=== PATIENT | female | born 1960 | race Caucasian/White ===

== ENCOUNTER 2018-05-13 00:14 | Outpatient (CLI) | payer BC, SELFPAY ==
--- NOTE | 2018-05-13 07:56 | DI.MAMMO_ITS ---
SYMPTOMS/DIAGNOSIS: SCREENING, Z12.31 MAMMOGRAM: Mammograms were interpreted according to the usual protocol including computer analysis with CAD system, tomosynthesis and C view imaging. Comparison is made with exams from 2012 through 2017. The breasts are composed of extremely dense fibroglandular tissue, breast density Category D. No suspicious masses or suspicious microcalcifications are seen. There has been no significant change. IMPRESSION: Category I D, negative mammogram. Yearly screening mammography is recommended. [facility] ASSESSMENT OF FINDINGS: Negative. Category 1. Patient will receive a letter notifying them of these results. BI-RADS category D. The breasts are extremely dense, which lowers the sensitivity of mammography.
== END 2018-05-13 00:34 ==
PROVIDERS: PCP Internal Medicine; Visit Provider Obstetrics & Gynecology Gynecology
DX: Z12.31 Encounter for screening mammogram for malignant neoplasm of breast (principal)
CPT/HCPCS: 77063; 77067

== ENCOUNTER 2018-12-11 01:49 | Outpatient (CLI) | payer BC, SELFPAY ==
--- NOTE | 2018-12-11 10:00 | DI.CT_ITS ---
SYMPTOM/DIAGNOSIS: ABDOMINAL MASS R1900, PAIN R10.[address]: 12/11 CT examination of the abdomen and pelvis was performed with a bolus infusion of 100 cc Omnipaque 350 and ingestion of dilute Barium. Images obtained through the lung bases are unremarkable. Liver, spleen and pancreas appear normal. Gallbladder and bile ducts are CT normal. Adrenals and kidneys appear normal. No urinary tract calcification or obstruction. Abdominal aorta is of normal diameter and no major vascular abnormalities seen. No abdominal wall hernia seen. No abdominal or pelvic adenopathy. Appendix is normal. No evidence of diverticulitis. Note is made of multiple loops of proximal to mid small bowel which have thick singh and disordered folds. No evidence of obstruction. Mild dilatation of multiple loops of small bowel noted. CONCLUSION: Suspected small bowel process with wall thickening and disordered folds and multiple loops of proximal to mid small bowel. Consider enteritis of uncertain etiology.
[2018-12-11] MEDS: Omnipaque 350 MG/ML 100 ML BTL IJ (10:02)
[2018-12-11] MEDS: Breeza Beverage 473 ML BTL PO ×2 (10:03→10:04)
[2018-12-11] MEDS: Omnipaque 350 MG/ML 50 ML BTL PO (10:03)
== END 2018-12-11 02:09 ==
PROVIDERS: PCP Internal Medicine; Visit Provider Nurse Practitioner Family
DX: R10.84 Generalized abdominal pain (principal); R19.00 Intra-abdominal and pelvic swelling, mass and lump, unspecified site; K63.89 Other specified diseases of intestine
CPT/HCPCS: 74177; J3490; Q9967

== ENCOUNTER 2019-06-14 01:57 | Outpatient (CLI) | payer BC, SELFPAY ==
--- NOTE | 2019-06-14 09:30 | DI.MAMMO_ITS ---
EXAM: MG MAMMO SCREENING CLINICAL HISTORY: screening. TECHNIQUE: Bilateral full field digital CC and MLO mammographic images were obtained with 3D tomosyn thesis and utilizing computer aided detection (CAD). COMPARISON: Available for comparison. FINDINGS: Masses/Architectural Distortion: None seen. Microcalcifications: No suspicious pleomorphic-type are seen. Skin Thickening/Nipple Retraction: None. IMPRESSION: 1. No significant interval change with no specific features of malignancy noted. 2. Unless there is more urgent need, screening mammography is recommended, as per [place] [employer] guidelines. ACR BI-RAD Category- 1 Negative Breast Density - Category C - Heterogeneously dense The mammogram demonstrates the patient's breast tissue is dense. Dense breast tissue is very common a nd is not abnormal but dense breast tissue can make it harder to find cancer on a mammogram. Also, de nse breast tissue may increase their breast cancer risk. This information about the result of the [facility] mogram report was provided to the patient to raise their awareness. Use this report when you speak wi th the patient about their risks for breast cancer, which includes their family history. At that time , you may recommend for more screening tests (Ultrasound or MRI) as they might be useful based on the ir risk. A negative radiographic report should not delay biopsy if a dominant or clinically suspicious mass is present. Up to ten percent of cancers are not identified on mammography. A negative report may reinforce clinical impression. Adenosis and dense breasts may obscure an underlying neoplasm. False positive reports average 6 to 10%. Patient will receive a letter notifying them of these results.
== END 2019-06-14 02:17 ==
PROVIDERS: PCP Internal Medicine; Visit Provider Obstetrics & Gynecology Gynecology
DX: Z12.31 Encounter for screening mammogram for malignant neoplasm of breast (principal)
CPT/HCPCS: 77063; 77067

== ENCOUNTER 2019-12-02 10:13 | Day surgery (SDC) | payer BC, SELFPAY ==
[2019-12-02 10:28] VITALS: BP 140/86; PULSE 57; RESP 16; TEMP 36.1; O2SAT 97
[2019-12-02] MEDS: Lactated Ringers 1,000 ML 80 ML IV (10:53)
--- NOTE | 2019-12-02 12:17 | W.PM.DSUDISC ---
Discharge Plan Disposition Patient Disposition: HOME Condition: Good Discharge Details Reason For Visit: colon scope Attending Provider: Nathaly Lucero Primary Care Provider: Isael Dinh Home Meds and New Rx's Prescriptions: Continued cholecalciferol (vitamin D3) 400 unit capsule 400 unit PO DAILY RF: 0 naproxen sodium [Aleve] 220 mg capsule 220 mg PO Q12H RF: 0 multivitamin [Multi-Day] 1 EACH tablet 1 ea PO DAILY RF: 0 Discharge Instructions Additional Instructions: Findings:normal today Follow up:repeat 5 yrs time Please call if you develop: fevers >101.5 Nausea or Vomiting Abdominal pain that is not transient DAY SURGERY UNIT POST COLONOSCOPY INSTRUCTIONS 1. Because there will be medication in your system for the next 24 hours, you may feel a little sleepy. Your coordination will be affected. Therefore: a. Do not drive or operate dangerous equipment for 24 hours. b. Do not drink alcohol beverages for 24 hours (not even beer). c. Plan to go home and rest for the day. 2. Generally there are no restrictions on your activity after a day or so has gone by, but you may feel a bit fatigued for a few days. 3 After you arrive home you may have a light meal and return to a normal diet as you can tolerate it without feeling sick to your stomach. 4. After surgery, you may feel pain or discomfort. This should be only transient, but if it persists please contact your doctor. 5. If there are any questions regarding the findings of your procedure, please feel free to contact your doctor. 6. If you are unable to contact your doctor with a problem, contact the hospital at [phone]. 7. Continue all your regular medications unless directed otherwise. I understand the above instructions and have no questions. Signature of Patient or Responsible Adult Escort Date/Time Name of Responsible Adult Escort Signature of Nurse Date/Time Activity:: No strenuous activity or lifting over 20 pounds x 24 hours. Diet:: Small light meals x24 hours Discharge Orders Discharge Orders: Discharge Order (Routine); Ordered 12/02/19 Ordered By: Nathaly Lucero DS: Diagnosis Discharge Diagnosis (1) Villous adenoma of rectum: Status: Acute
--- NOTE | 2019-12-02 12:20 | W.COLOREPORT ---
Date of service: 12/02/19 Time of Service: 12:20 Colonoscopy Report Date of procedure: 12/02/19 Pre-op diagnosis general: History of villous adenoma in the rectum Post-op diagnosis procedure note: same Procedure: Colonoscopy Anesthesia proc note operative: MAC Estimated blood loss (mL): 0 Pathology: none sent Complications: None Disposition: same day Prep: Miralax/Dulcolax Retraction Time: 10 mins Procedure Description: After informed consent was obtained the patient was taken to the procedure room and placed in a left decubitous position. Monitors were applied and a time out was done. The patients name, date of , procedure, allergies to medications and metal in their body was reviewed. The patient was then sedated. Once sedated and comfortable a rectal exam was done. External exam was normal. Internal exam revealed a normal sphincter tone and no palpable masses. The scope was then introduced and retrofelexed. no internal hemorrhoids were identified. The scope was then advanced to the cecum w/outdifficulty. The TI and appendiceal orifice were identified. The prep was good. The scope was then slowly retracted over 10 mins. Mnutes back into the rectum. No diverticula or AVMs identified. Is pink and healthy. There is no signs of polypoid disease.. The scope was removed and the patient was woken up and taken back to Same day surgery in stable condition. The patient tolerated the procedure well and there were no immediate complications. Follow up: The patient should follow up in 5 years (had a very lg villous in the rectum in 2009) unless they develop changes in bowel habits or other new gastrointestinal complaints.
[2019-12-02 12:45] VITALS: BP 114/70; PULSE 43; RESP 16; TEMP 36.2; O2SAT 100
== END 2019-12-02 13:34 | disposition home or self-care (01) ==
PROVIDERS: PCP Internal Medicine; Visit Provider Surgery
PROC: 0DJD8ZZ Inspection of Lower Intestinal Tract, Via Natural or Artificial Opening Endoscopic (ICD-10-PCS; CPT 45378; principal; 2019-12-02 11:00)
DX: Z12.11 Encounter for screening for malignant neoplasm of colon (principal); Z86.018 Personal history of other benign neoplasm; Z83.71 Family history of colonic polyps
CPT/HCPCS: 45378

== ENCOUNTER 2020-04-24 10:05 | Outpatient (REF) | payer BC, SELFPAY ==
--- NOTE | 2020-04-24 08:30 | PAPFT_PTH ---
PATIENT: Shahida Allen LOC: [facility] U#:[id number] AGE/SX: 59/F ROOM: RE04/24/[address]: Adela Rogers NP : 1960 BED: DIS: 04/24/2020 SPEC #: [id number] RECD: 04/24/20 12:47 STATUS: DEJAH REQ #: [id number] MARIS: 04/24/20 08:[address]: Ken MORALES,Adela DEPT: [facility] Cytology RECD BY: Thea Diggs ENTERED: 04/24/20 12:48 SP TYPE: PAPFT OTHR DR: Isael Dinh Tissues: 1 - CX/ENDOCX FOR PAP SMEARS Procedures: PAP THIN PREP/UVM Screening Comments: [id number] (UNSATISFACTORY FOR EVALUATION)
== END 2020-04-24 10:25 ==
LOC: LBN 10:05
PROVIDERS: PCP Internal Medicine; Visit Provider Nurse Practitioner Women's Health
DX: Z12.4 Encounter for screening for malignant neoplasm of cervix (principal); R87.615 Unsatisfactory cytologic smear of cervix
CPT/HCPCS: 88142

== ENCOUNTER 2020-06-19 09:41 | Outpatient (REF) | payer BC, SELFPAY ==
--- NOTE | 2020-06-19 09:10 | PAPFT_PTH ---
PATIENT: Shahida Allen LOC: [facility] U#:[id number] AGE/SX: 59/F ROOM: RE06/19/[address]: Adela Rogers NP : 1960 BED: DIS: 06/19/2020 SPEC #: [id number] RECD: 06/19/20 13:11 STATUS: DEJAH REHailee #: [id number] MARIS: 06/19/20 09:[address]: Adela Rogers NP DEPT: [facility] Cytology RECD BY: Thea Diggs ENTERED: 06/19/20 13:11 SP TYPE: PAPFT OTHR DR: Isael Dinh Tissues: 1 - CX/ENDOCX FOR PAP SMEARS Procedures: PAP THIN PREP/UVM Screening HPV DNA PROBE Comments: [id number]
== END 2020-06-19 09:42 | disposition home or self-care (01) ==
LOC: LBN 09:41
PROVIDERS: PCP Internal Medicine; Visit Provider Nurse Practitioner Women's Health
DX: Z12.4 Encounter for screening for malignant neoplasm of cervix (principal); Z11.51 Encounter for screening for human papillomavirus (HPV)
CPT/HCPCS: 88142; 87624

== ENCOUNTER 2020-06-26 02:12 | Outpatient (CLI) | payer BC, SELFPAY ==
--- NOTE | 2020-06-26 | DI.MAMMO_ITS ---
EXAM: MG MAMMO SCREENING CLINICAL HISTORY: SCREENING, Z12.39 TECHNIQUE: Bilateral full field digital CC and MLO mammographic images were obtained with 3D tomosyn thesis and utilizing computer aided detection (CAD). COMPARISON: Available for comparison. FINDINGS: Masses/Architectural Distortion: None seen. Microcalcifications: No suspicious pleomorphic-type are seen. Skin Thickening/Nipple Retraction: None. IMPRESSION: 1. No significant interval change with no specific features of malignancy noted. 2. Unless there is more urgent need, screening mammography is recommended, as per [place] [employer] guidelines. BI-RADS Category 1 - Negative Breast Density - Category C - Heterogeneously dense Breast density category C or D implies that the patient has dense breast tissue. Dense breast tissue is very common and is not abnormal but dense breast tissue can make it harder to find cancer on a ma mmogram. Also, dense breast tissue may increase their breast cancer risk. This information about the result of the mammogram report was provided to the patient to raise their awareness. Use this report when you speak with the patient about their risks for breast cancer, which includes their family hist ory. At that time, you may recommend for more screening tests (Ultrasound or MRI) as they might be us eful based on their risk. A negative radiographic report should not delay biopsy if a dominant or clinically suspicious mass is present. Up to ten percent of cancers are not identified on mammography. A negative report may reinforce clinical impression. Adenosis and dense breasts may obscure an underlying neoplasm. False positive reports average 6 to 10%. Patient will receive a letter notifying them of these results.
== END 2020-06-26 02:32 ==
PROVIDERS: PCP Internal Medicine; Visit Provider Nurse Practitioner Women's Health
DX: Z12.31 Encounter for screening mammogram for malignant neoplasm of breast (principal)
CPT/HCPCS: 77063; 77067

== ENCOUNTER 2021-03-27 10:55 | Outpatient (REF) | payer SELFPAY ==
[2021-03-27 15:17] LABS: Calculated LDL 148 mg/dL (<100); Cholesterol 275 mg/dL (<200); Glucose 92 mg/dL (74-106); HDL Cholesterol 117 mg/dL (40-60); Triglyceride 52 mg/dL (<150)
== END 2021-03-27 10:56 | disposition home or self-care (01) ==
LOC: NCHCN 10:55
PROVIDERS: PCP Internal Medicine; Visit Provider Family Medicine
DX: R42 Dizziness and giddiness (principal)
CPT/HCPCS: 80061; 82947

== ENCOUNTER 2021-04-11 11:40 | Outpatient (REF) | payer SELFPAY ==
--- NOTE | 2021-04-11 09:30 | SKI_PTH ---
PATIENT: Shahida Allen LOC: [facility]#:[id number] AGE/SX: 60/F ROOM: RE04/11/[address]: Wagner Rodriguez : 1960 BED: DIS: 04/11/2021 SPEC #: [id number] RECD: 04/11/21 17:43 STATUS: DEJAH REQ #: [id number] MARIS: 04/11/21 09:[address]: Wagner Rodriguez DEPT: Surgical Specimen RECD BY: Thea Diggs ENTERED: 04/11/21 17:43 SP TYPE: MICA ALFARO DR: Isael Dinh Tissues: 1 - SKIN BIOPSY(SHAVE/PUNCH) Procedures: SKIN LEVEL 4 Comments: [id number]
== END 2021-04-11 11:41 | disposition home or self-care (01) ==
LOC: LBN 11:40
PROVIDERS: PCP Internal Medicine; Visit Provider Family Medicine
DX: C44.612 Basal cell carcinoma of skin of right upper limb, including shoulder (principal)
CPT/HCPCS: 88305

== ENCOUNTER 2023-02-10 10:37 | Outpatient (REF) | payer BC, SELFPAY ==
--- NOTE | 2023-02-10 10:25 | PAPFT_PTH ---
PATIENT: Shahida Allen LOC: [facility]#:[id number] AGE/SX: 62/F ROOM: RE02/10/[address]: Adela Rogers NP : 1960 BED: DIS: 02/10/2023 SPEC #: [id number] RECD: 02/10/23 13:01 STATUS: DEJAH REQ #: [id number] MARIS: 02/10/23 10:[address]: Ken MORALES,Adela DEPT: [facility] Cytology RECD BY: Thea Diggs ENTERED: 02/10/23 13:01 SP TYPE: PAPFT OTHR DR: Isael Dinh Tissues: 1 - CX/ENDOCX FOR PAP SMEARS Procedures: PAP THIN PREP/UVM Screening HPV DNA PROBE Comments: [id number]
== END 2023-02-10 10:38 | disposition home or self-care (01) ==
LOC: LBN 10:37
PROVIDERS: PCP Internal Medicine; Visit Provider Nurse Practitioner Women's Health
DX: Z12.4 Encounter for screening for malignant neoplasm of cervix (principal); Z11.51 Encounter for screening for human papillomavirus (HPV)
CPT/HCPCS: 88142; 87624

== ENCOUNTER → 2023-02-27 01:13 | Outpatient (CLI) | payer BC, SELFPAY ==
--- NOTE | 2023-02-27 12:15 | DI.MAMMO_ITS ---
Exam(s) MAMMO SCREENING EXAM: MAMMO SCREENING Ronnie see CLINICAL HISTORY: screening TECHNIQUE: Bilateral full field digital CC and MLO mammographic images were obtained with 3D tomosyn thesis and utilizing computer aided detection (CAD). COMPARISON: Available for comparison. FINDINGS: Masses/Architectural Distortion: None seen. Microcalcifications: No suspicious pleomorphic-type are seen. Skin Thickening/Nipple Retraction: None. IMPRESSION: 1. No significant interval change with no specific features of malignancy noted. 2. Unless there is more urgent need, screening mammography is recommended, as per [place] [employer] guidelines. BI-RADS Category 1 - Negative Breast Density - Category C - Heterogeneously dense Breast density category C or D implies that the patient has dense breast tissue. Dense breast tissue is very common and is not abnormal but dense breast tissue can make it harder to find cancer on a ma mmogram. Also, dense breast tissue may increase their breast cancer risk. This information about the result of the mammogram report was provided to the patient to raise their awareness. Use this report when you speak with the patient about their risks for breast cancer, which includes their family hist ory. At that time, you may recommend for more screening tests (Ultrasound or MRI) as they might be us eful based on their risk. A negative radiographic report should not delay biopsy if a dominant or clinically suspicious mass is present. Up to ten percent of cancers are not identified on mammography. A negative report may reinforce clinical impression. Adenosis and dense breasts may obscure an underlying neoplasm. False positive reports average 6 to 10%. Patient will receive a letter notifying them of these results.
== END ==
PROVIDERS: PCP Internal Medicine; Visit Provider Nurse Practitioner Women's Health
DX: Z12.31 Encounter for screening mammogram for malignant neoplasm of breast (principal)
CPT/HCPCS: 77063; 77067

== ENCOUNTER 2023-08-25 14:36 | Outpatient (REF) | payer BC, SELFPAY ==
[2023-08-25 14:33] LABS: HCT 44.1 % (36.0-46.0); HGB 14.2 g/dL (11.2-15.7); MCH 30.5 pg (27.0-33.0); MCHC 32.2 % (32.0-36.0); MCV 95 fL (80-95); MPV 11.1 fL (8.0-11.0); Platelet Count 370 10^3/uL (130-400); RBC 4.65 10^6/uL (3.93-5.22); RDW-SD 45.1 fL; WBC 3.77 10^3/uL (4.4-10.8)
[2023-08-25 15:16] LABS: ALT 32 U/L (14-59); AST 21 U/L (15-37); Albumin 3.7 g/dL (3.4-5.0); Alkaline Phosphatase 48 U/L (46-116); BUN 18 mg/dL (7-18); CREATININE 0.6 mg/dL (0.55-1.02); Calcium 9.4 mg/dL (8.5-10.1); Calculated LDL 103 mg/dL (<100); Chloride 105 mmol/L (98-107); Cholesterol 230 mg/dL (<200); Estimated GFR 102.06 (mL/min/1.73m2); Glucose 93 mg/dL (74-106); HDL Cholesterol 117 mg/dL (40-60); Potassium 4.8 mmol/L (3.5-5.1); Sodium 142 mmol/L (136-145); Total Protein 6.4 g/dL (6.4-8.2); Triglyceride 52 mg/dL (<150)
== END 2023-08-25 14:37 | disposition home or self-care (01) ==
LOC: NCHCN 14:36
PROVIDERS: PCP Internal Medicine; Visit Provider Family Medicine
DX: Z00.00 Encounter for general adult medical examination without abnormal findings (principal); E78.5 Hyperlipidemia, unspecified
CPT/HCPCS: 80053; 80061; 85027

== ENCOUNTER 2023-11-25 13:15 | Outpatient (REF) | payer BC, SELFPAY ==
[2023-11-25 14:59] LABS: TSH (W/Ref FT4) 2.13 uIU/mL (0.36-3.74)
== END 2023-11-25 13:16 | disposition home or self-care (01) ==
LOC: NCHCN 13:15
PROVIDERS: PCP Internal Medicine; Visit Provider Family Medicine
DX: F32.89 Other specified depressive episodes (principal)
CPT/HCPCS: 84443

== ENCOUNTER 2024-03-26 00:29 | Outpatient (CLI) | payer BC, SELFPAY ==
--- OUTSIDE RECORDS SUMMARY | 2024-03-26 00:34 | XMS_ITS | Encounter Summary ---
[facility] [place] [address] Care Team Providers Care Instructor Robotics Name Role Phone Wagner Rodriguez MD Primary Care Provider [phone] Encounter Details Date Type Department Care Team (Latest Contact Info) Description 10/31/2022 9:45 AM EDT Clinical Support Dermatology at [facility] [address] [place] [address] Pacheco Awan MD [facility] DR [facility] [address] Basal cell carcinoma (BCC) of forehead Social History Tobacco Use Types Packs/Day Years Used Date Smoking Tobacco: Never Smokeless Tobacco: Never Sex and Gender Information Value Date Recorded Sex Assigned at Not on file Gender Identity Not on file Sexual Orientation Not on file documented as of this encounter Progress Notes * Ashley Lemus, JOSS - 10/31/2022 9:45 AM EDT Mohs consultation and preoperative note (H&P) Patient Name: Shahida Allen Age: 62 y.o. Date of : 1960 Today's Date: 10/31/2022 REFERRING PROVIDER: Sandra Cameron CC: Mohs micrographic surgery for treatment of a cutaneous tumor HPI: Shahida Allen is a 62 y.o. female presenting for biopsy-proven basal cell carcinoma, superficial and nodular, location on the left forehead. The dermatologic preoperative information sheet was reviewed with pertinent positive and negative as below. DERMATOLOGIC PRE-OPERATIVE EVALUATION AND REVIEW OF SYSTEMS History of Mohs surgery? no If yes, have you ever had Mohs surgery with Dr. Awan? no Pacemaker/Defibrillator? no Joint replacement or other implantable devices (e.g. Cochlear implant)? If yes then when? no Do you take a blood thinner? No History of organ transplant? no History of artificial valve or stroke? no History of liver disease or bleeding disorder? no Do you have any medical problems that may affect your upcoming surgery? no Do you have any concerns regarding your upcoming surgery? no We ask patients to discontinue Fish oil/Multivitamin/Vit E/?? supplements and natural medicines not prescribed by a physician 1 week prior to surgery. SOCIAL HISTORY: Makes Own Decisions Yes Hearing aid or other devices: No Relevant travel history or future plans: none Tobacco use (amount per day, type of tobacco): no Do you have any physical limitations that may affect your surgery?: no ALLERGIES: Allergies reviewed MEDICATIONS: Medications reviewed documented in this encounter Plan of Treatment Not on file documented as of this encounter Visit Diagnoses Diagnosis Basal cell carcinoma (BCC) of forehead documented in this encounter Care Teams Instructor Robotics Relationship Specialty Start Date End Date Wagner Rodriguez MD [address] [place] [address] PCP - General Family Medicine 02/18/22 documented as of this encounter
--- OUTSIDE RECORDS SUMMARY | 2024-03-26 00:34 | XMS_ITS | Encounter Summary ---
Author Organization [facility] Address 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 Sandra Cameron MD [facility] [place] [address] [facility] [address] [place] [address] Referral ID Status Reason Start Date Expiration Date V isits Requested Visits Authorized [id number] Closed Consult, Test & Treat 09/11/2022 09/11/2023 1 1 Encounter Details Date Type Department Care Team (Latest Contact Info) Description 10/31/2022 10:00 AM EDT Procedure visit Dermatology at [facility] [address] [place] [address] Pacheco Awan MD [facility] [address] [place] [address] Basal cell carcinoma (BCC), unspecified site; Basal cell carcinoma (BCC) of left forehead Social History Tobacco Use Types Packs/Day Years Used Date Smoking Tobacco: Never Smokeless Tobacco: Never Sex and Gender Information Value Date Recorded Sex Assigned at Not on file Gender Identity Not on file Sexual Orientation Not on file documented as of this encounter Last Filed Vital Signs Vital Sign Reading Time Taken Comments Blood Pressure 154/84 10/31/2022 9:57 AM EDT Pulse 58 10/31/2022 9:57 AM EDT Temperature - - Respiratory Rate - - Oxygen Saturation - - Inhaled Oxygen Concentration - - Weight - - Height - - Body Mass Index - - documented in this encounter Progress Notes * Pacheco Awan MD - 10/31/2022 10:00 AM EDT Images from the original note were not included. Summary of Procedure(s): Site: left forehead Tumor Type: Basal Cell Carcinoma, superficial and nodular Stages to clear tumor: 1 Repair: linear closure Images: The patient was asked to call with any issues and is aware that I am available 18/11 should questions arise. Pacheco Awan MD PhD Mohs Micrographic Surgery and Dermatologic Oncology Department of Dermatology Please note that I have reviewed the preoperative checklist from today's nursing visit including relevant social history and medications. I have reviewed the preoperative photos if available and the biopsy report. VITAL SIGNS: BP 154/84 (BP Location (NBP): Right arm, Patient Position: Sitting, BP Cuff Sizes: Adult (25-34 cm)) Pulse 58 PHYSICAL EXAMINATION: General: patient is awake, alert, oriented and in no acute distress. Skin: Focused examination of surgical site(s) performed which shows a well healed biopsy site with surrounding poorly defined pearly plaque. PHYSICIAN REVIEW OF REPORTS, RECORDS, IMAGES: 1) The accompanying pathology report(s) associated with aforementioned biopsy slide(s) were/was also reviewed. Assessment: Shahida Allen is a 62 y.o. female presenting for: 1. Biopsy-proven basal cell carcinoma located on the Left forehead . Plan: 1. Findings from the biopsy report, today's clinical exam, and other pertinent details were reviewed with patient today. All questions were answered. 2. Discussed treatment options based on the above findings. We recommended Mohs micrographic surgery for treatment of this tumor. Mohs micrographic surgery was indicated due to patient, site and/or tumor characteristics (see operative report for specific indication). 3. We discussed risks, benefits, and alternative treatment options to the Mohs micrographic surgeryprocedure and pertinent information including but not limited to the following: Risks include bleeding, infection, scar, recurrence, incomplete tumor removal or inability to cure with surgery alone if the tumor features are more aggressive than the initial pathology indicates. Occasionally, additional adjuvant treatments may be recommended. Additional risks include large wound, prolonged wound and healing, pain, swelling, bruising, increased appearance of vessels or worsening erythema of baseline skin; more rarely risks include damage to underlying structures such as nerves, cartilage, or muscle which could lead to temporary or permanent loss of sensation or motor function. Benefit is precise tumor removal If reconstruction is performed, it is specific to the patient and defect. Discussed that the shape, size, depth of the wound is often not known until the tumor is cleared and thus the reconstruction options are sometimes not known until after tumor clearance. Occasionally,referrals to other providers may be recommended for reconstruction based on patient preference and need. Reviewed the pros and cons of common reconstructions used for this tumor type, size, and location, and that reconstruction may lead to change in appearance. Natural history of scar was discussed, including that the scar will continue to mature for 1-2 years. Recommended avoidance of special ointments or scar creams, and avoidance of direct sun exposure to the scar for optimal recovery. Reviewed that there are some aspects of cosmesis that are dependent on patient's characteristics such as age, skin laxity/texture factors, inflammatory skin diseases such as rosacea, prior surgery/radiation, degree of actinic damage, smoking status, strength of the patient's immune system, diligentwound care, medications, and genetics. Having Mohs surgery may lead to physical limitations for optimal healing, such as restricted physical activity and heavy lifting. 4. Signs and symptoms of skin cancer reviewed. Patient to report any new, changing, or symptomatic lesions and follow up with his or her document review attorney or other skin provider. 5. Discussed avoiding direct sun exposure to scars for best cosmetic result. Note initiated by Albertina Lemus LPN has performed the documentation for this encounter in the presence of and acting as a scribe for Dr. Awan I performed the above scribed service and agree with the accuracy of the documentation in this encounter. Reviewed and signed by: Pacheco Awan Dermatology [facility] * Pacheco Awan MD - 10/31/2022 10:00 AM EDT Mohs micrographic Surgery Operative Report Patient name: Shahida Allen : 1960 Date: 10/31/2022 Staff Surgeon and Pathologist: Pacheco Awan MD PhD Nursing/Inner Tube Tuber Machine Operator(s): Ashley Lemus [facility] Insulation Board Back Tender (s): Norm Wilde [employer] Pre-operative diagnosis: Basal Cell Carcinoma, superficial type Post-operative diagnosis: Basal Cell Carcinoma, superficial type Location/Site: Left Forehead Procedure: Mohs micrographic surgery Indication(s) for Mohs micrographic surgery: Anatomic location for tissue conservation Stages: 1 Preoperative size of tumor: 0.6 x 0.5 cm Stage I The nature and purpose of the procedure, associated risks, possible consequences and complications,and alternative forms of treatment were explained in detail. We reviewed the possible repairs basedon the clinical appearance of tumor but discussed that often the repair options may not be known until the tumor has benjamín extirpated. Informed consent and permission to take photographs were obtained. The site was confirmed with the patient/authorized canvas products sales representative/referring physician and/or a photograph form time of biopsy. A pre-operative time-out (procedural pause) was conducted with no unresolved discrepancies noted. Local anesthesia was obtained with 0.5 % lidocaine with 1:200,000 epinephrine. The surgical site was prepped and draped in the usual sterile manner. A 1-2 mm margin was excised around clinically evident tumor as a complete layer. Hemostasis was achieved by electrocoagulation. The excised tissue was oriented and divided into 2 sections, chromacoded, and submitted for frozen sections. The patient tolerated the procedure well and without complications. On my personal microscopic evaluation of the frozen sections, no residual tumor was identified on the deep or outer border of the sections. The final size of the defect after complete tumor removal was 1.1 x 0.8 cm, extending to level of subcutaneous tissue. Repair Operative Report (Complex Linear Repair) Patient name: Shahida Allen : 1960 Clinical Diagnosis: 1.1 x 0.8 cm surgical defect secondary to Mohs microscopically controlled excision Location/Site: Left forehead Indication: repair of wound for buddhism of function/anatomy Procedure: Complex linear layered closure of Mohs defect Due to the size and location of the defect resulting from the complete removal of the tumor, the postoperative risk of hemorrhage, infection, and the possibility of serious deformity from scarring, and in order to restore proper function and prevent loss of function, the defect was closed in the following manner. The nature and purpose of the procedure, associated risks, possible consequences, complications andalternative methods of treatment were explained to the patient in detail. An informed consent was obtained. The operative site was anesthetized with 0.5% lidocaine with 1:200,000 epinephrine. The site was prepped and draped in the usual sterile manner. The edges of the defect were widely underminedat the dermal subcutaneous layer greater than the width of the defect as stated above. Hemostasis was achieved with electrocoagulation. The edges could then be approximated without excess tension. The deep tissues were apposed and sutured with 4.0 Monocryl sutures and the epidermal edges were approximated with 6-0 Fast Gut running and/or interrupted sutures. .The resulting complex linear closure measured 3.0 cm. The surgical site was cleaned and white petrolatum with a gauze pressure dressing applied. The patient tolerated the procedure well and without complications and was given both verbal and written instruction on postoperative wound care. Follow up as needed. The patient was discharged in good condition. Total local anesthesia with 0.5 % lidocaine with 1:200,000 epinephrine used: 9 cc Pacheco Awan MD PhD Mohs Micrographic Surgery and Dermatologic Oncology Department of Dermatology [address] [place] [address] Note initiated by Albertina Frederick has performed the documentation for this encounter in the presence of and acting as a scribe for Dr. Mir Vo performed the above scribed service and agree with the accuracy of the documentation in this encounter. Reviewed and signed by: Pacheco Awan Dermatology [facility] OPERATIVE REPORT (Electrodesiccation and Curettage) Patient: Shahida Allen : 1960 Date: 10/31/2022 STAFF SURGEON: Pacheco Awan MD PhD PNEUMATIC HOIST OPERATOR: Ashley Lemus LPN DATE OF SERVICE: 10/31/2022 INDICATION: Removal/Treatment of cutaneous malignancy PREOPERATIVE DIAGNOSIS: Basal cell carcinoma, superficial type POSTOP DIAGNOSIS: SAME ABOVE PREOPERATIVE SIZE: 1.0 x 0.8 cm SITE: Right clavical PROCEDURE Electrodesiccation and curettage Prior to the procedure, final verification of the patient identity and correct marked surgical sitewas performed. Procedural pause (timeout) performed. The anesthesia used was 0.5% lidocaine with 1:200,000 epinephrine. The skin was prepped in a sterile fashion with alcohol swab. The lesion was curetted with a 4-mm curette in three different directions and electrodesiccation of the base was performed with clinical margins. This was repeated until clinically tumor-free margins were obtained. Postoperative size: 1.2 x 1.0 cm. Estimated blood loss: Minimal. Complications: None. Wound care: Routine. No specimen sent to pathology as the lesion has previously been biopsied and showed tumor. Total local anesthesia with 0.5% lidocaine with 1:200,000 epinephrine used: 9 cc FOLLOW UP: As needed; recommend annual clinical monitoring of site I, Albertina Frederick, and Ashley Lemus LPN has performed the documentation for this encounter in the presence of and acting as a scribe for Pacheco Awan MD. I performed the services which were documented by the scribe, and I agree with the accuracy of the documentation in this encounter. Albertina Awan MD PhD Mohs Micrographic Surgery and Dermatologic Oncology Department of Dermatology [address] [place] [address] documented in this encounter Plan of Treatment Scheduled Referrals Name Type Priority Associated Diagnoses Orde r Schedule Referral to Dermatology Outpatient Referral Routine Basal cell carcinoma (BCC), unspecified site Basal cell carcinoma (BCC) of left forehead Ordered: 09/11/2022 documented as of this encounter Visit Diagnoses Diagnosis Basal cell carcinoma (BCC), unspecified site Basal cell carcinoma (BCC) of left forehead documented in this encounter Care Teams Licensed Esthetician Relationship Specialty Start Date End Date Wagner Rodriguez MD [address] [place] [address] PCP - General Family Medicine 02/18/22 documented as of this encounter
--- OUTSIDE RECORDS SUMMARY | 2024-03-26 00:34 | XMS_ITS | Encounter Summary ---
[place] [address] Care Team Providers Care Developmental Services Worker Name Role Phone Isael Dinh MD Primary Care Provider [phone] Reason for Referral * Diagnostic Test (Routine) - Closed Specialty Diagnoses / Procedures Referred By Contac t Referred To Contact Diagnoses ST elevation Other chest pain Severe sinus bradycardia Palpitations Procedures Echocardiogram Stress (Treadmill) Sherita Medrano APRN [address] [place] [address] [facility] [place] [address] Referral ID Status Reason Start Date Expiration Date V isits Requested Visits Authorized [id number] Closed Specialty Service Requested 08/11/2017 10/09/2017 1 1 Reason for Visit * Diagnostic Test (Routine) - Closed Specialty Diagnoses / Procedures Referred By Contac t Referred To Contact Diagnoses ST elevation Other chest pain Severe sinus bradycardia Palpitations Procedures Echocardiogram Stress (Treadmill) Sherita Medrano APRN [address] [place] [address] [facility] [place] [address] Referral ID Status Reason Start Date Expiration Date V isits Requested Visits Authorized [id number] Closed Specialty Service Requested 08/11/2017 10/09/2017 1 1 Encounter Details Date Type Department Care Team (Latest Contact Info) Description 08/21/2017 8:28 AM EDT - 08/21/2017 11:59 PM EDT Hospital Encounter [place] [address] Sherita Medrano APRN [address] [place] [address] ST elevation; Other chest pain; Severe sinus bradycardia; Palpitations Discharge Disposition: Home Social History Tobacco Use Types Packs/Day Years Used Date Smoking Tobacco: Never Smokeless Tobacco: Never Sex and Gender Information Value Date Recorded Sex Assigned at Not on file Gender Identity Not on file Sexual Orientation Not on file documented as of this encounter Medications at Time of Discharge Medication Sig Dispensed Refills Start Date End Date multivit-min/folic acid/tsp516 (ALIVE WOMEN'S GUMMY VITAMINS ORAL) Take by mouth daily. calcium carbonate/vitamin D3 (CALCIUM + D ORAL) Take by mouth as needed. naproxen sodium (ALEVE) 220 mg Capsule Take by mouth as needed. documented as of this encounter Plan of Treatment Not on file documented as of this encounter Procedures Procedure Name Priority Date/Time Associated Diagnosis Comments STRESS ECHO W CONTRAST W LMTD SPEC DOPP COLOR DOPP Routine 08/21/2017 10:[address] elevation Other chest pain Severe sinus bradycardia Palpitations documented in this encounter Results * STRESS ECHO W CONTRAST W LMTD SPEC DOPP COLOR DOPP (08/21/2017 10:11 AM EDT) EF 65 HEARTLAB SYSTEM Anatomical Region Laterality Modality Other 08/21/2017 Narrative 08/21/2017 10:19 AM EDT Procedure: ?Stress Echocardiogram Patient: ?ROHAN DELUCA ?(Age): 1960(57y) Med Rec#: ? [id number] ?Sex: ?F ? Site Loc: ? [facility] ?Ht / Wt: ??167(cm)/50(kg) Pt. Loc: ?Echo Lab ?BSA: ?1.55 Study Date: ?? 08/21/2017 ?Pt. Type: Tape: ? Referring: [facility] Reading: Isael Hinojosa ([id number]) Family Dinner Service Specialist: Neri Villalta Regional Account Manager: Jaimie Landers Diagnosis: *ICD-10-PCS Abnormal electrocardiogram [ECG] [EKG] (R94.31) *ICD-10-PCS Other chest pain (R07.89) *ICD-10-PCS Palpitations (R00.2) *ICD-10-PCS Bradycardia, unspecified (R00.1) Stage ? BP ?HR ? Rest ?100/74 ?62 ? Peak ?162/72 ?181 ? Recovery ?120/68 ?76 ? SUMMARY: 1. BASELINE: Normal global and segmental biventricular systolic function with an estimated left ventricular ejection fraction of 65%. 2. STRESS: Patient followed a Seferino protocol. The patient exercised into stage 6. The total exercise duration was:15:13 min. The patient achieved a maximum heart rate of 181 which is 110% of the maximum predicted heart rate (165 beats/min). The target heart rate was achieved. The study was terminated because of fatigue. The patient did not express feelings of chest discomfort. The blood pressure response was normal. Exercise capacity was excellent. The patient achieved a level of 18 METS. There were rare atrial premature beats. There were rare ventricular premature beats. There were no significant ST segment changes. This was a negative electrocardiographic stress test for ischemia. 3. ECHOCARDIOGRAPHIC FINDINGS: Global left ventricular systolic function appears hyperdynamic. 4. IMPRESSION: Normal exercise echocardiogram. ??There is no echocardiographic evidence of ischemia at this level of stress. 5. Other echo and stress findings as noted in report. Findings Rest: Left Ventricle: ? The left ventricle is probably normal in size. ?There is normal global left ventricular systolic function. ??Ejection fraction is estimated to be 65%. ?There are no left ventricular segmental wall motion abnormalities. Right Ventricle: ? The right ventricle is normal in size. ?Right ventricular global systolic function is normal. ?Pulmonary artery hypertension could not be assessed due to inadequate tricuspid regurgitation jet. Aortic Valve: ? The aortic valve is tricuspid. ?Systolic excursion of the aortic valve is normal. ?There is no evidence of aortic valve stenosis. ?There is no evidence of aortic regurgitation. Mitral Valve: ? The mitral valve leaflets appear normal. ?There is trace mitral regurgitation present. Tricuspid Valve: ? The tricuspid valve leaflets are morphologically normal. ?There is trace tricuspid regurgitation present. Pericardium: ? The pericardium appears normal and there is no evidence of a pericardial effusion. Aorta: ? The ascending aorta is normal in size. Stress: ? EKG: normal sinus rhythm. ?The patient's oxygen saturation was 99% ?The patient is on no cardiac or blood pressure medications. Misc: ? Other echo and stress findings as noted in report. Findings Peak: Predicted Values:The patient achieved a maximum heart rate of 181 which is 110% of the maximum predicted heart rate (165 beats/min). ??The target heart rate was achieved. Left Ventricle: ? Global left ventricular systolic function appears hyperdynamic. ?There are no left ventricular segmental wall motion abnormalities. Stress: ? Patient followed a Seferino protocol. ?The patient exercised into stage 6. ?The total exercise duration was:15:13 min. ?The study was terminated because of fatigue. ?The patient did not express feelings of chest discomfort. ?The blood pressure response was normal. ?Exercise capacity was excellent. ?The patient achieved a level of 18 METS. ?There were rare atrial premature beats. ?There were rare ventricular premature beats. ?There were no significant ST segment changes. ?This was a negative electrocardiographic stress test for ischemia. ?This was a negative echocardiographic stress test. ?There is no echocardiographic evidence of myocardial ischemia at this level of stress. ?The patient's oxygen saturation was 96%. Misc: ? Definity contrast (one 1.5 ml vial)was used to enhance endocardial definition. Excess contrast was discarded. ?Stress echo, limited spectral Doppler, color Doppler and ECG interpretation performed. Chambers 2D ?Value ?Units (Range) ? Ascending Ao ?2.6 ?cm (2 - 3.5) ? Wall Motion: Segment Name ?Rest ? Peak ? Base-Anteroseptal ?? Normal ? Normal ? Base-Anterior ? Normal ? Normal ? Base-Anterolateral ??Normal ? Normal ? Base-Posterolateral Normal ? Normal ? Base-Inferior ? Normal ? Normal ? Base-Inferoseptal ?? Normal ? Normal ? Mid-Anteroseptal ?Normal ? Normal ? Mid-Anterior ?Normal ? Normal ? Mid-Anterolateral ?? Normal ? Normal ? Mid-Posterolateral ??Normal ? Normal ? Mid-Inferior ?Normal ? Normal ? Mid-Inferoseptal ?Normal ? Normal ? [place]-Septal ? Normal ? Normal ? [place]-Anterior ? Normal ? Normal ? [place]-Lateral ?Normal ? Normal ? [place]-Inferior ? Normal ? Normal ? [place]-Tip ?Normal ? Normal ? This report has been electronically signed by: Isael Hniojosa M.D. ? 08/21/2017 10:19:13 Images reviewed and interpretation verified [facility] Cardiac Ultrasound Laboratory Procedure Note Isael Hinojosa MD - 08/21/2017 Procedure: Stress Echocardiogram Patient: ROHAN LAUREN(Age): 1960(57y) Med Rec#: [id number] Sex: F [place] [facility] [place]t / Wt: 167(cm)/50(kg) Pt. Loc: Echo Lab BSA: 1.55 Study Date: 08/21/2017 Pt. Type: Tape: Referring: STRESSJASON Reading: Isael Hinojosa Laura ([id number]) Family Dinner Service Specialist: Neri Villalta Regional Account Manager: Jaimie Landers Diagnosis: *ICD-10-PCS Abnormal electrocardiogram [ECG] [EKG] (R94.31) *ICD-10-PCS Other chest pain (R07.89) *ICD-10-PCS Palpitations (R00.2) *ICD-10-PCS Bradycardia, unspecified (R00.1) Stage BP HR Rest 100/74 62 Peak 162/72 181 Recovery 120/68 76 SUMMARY: 1. BASELINE: Normal global and segmental biventricular systolic function with an estimated left ventricular ejection fraction of 65%. 2. STRESS: Patient followed a Seferino protocol. The patient exercised into stage 6. The total exercise duration was:15:13 min. The patient achieved a maximum heart rate of 181 which is 110% of the maximum predicted heart rate (165 beats/min). The target heart rate was achieved. The study was terminated because of fatigue. The patient did not express feelings of chest discomfort. The blood pressure response was normal. Exercise capacity was excellent. The patient achieved a level of 18 METS. There were rare atrial premature beats. There were rare ventricular premature beats. There were no significant ST segment changes. This was a negative electrocardiographic stress test for ischemia. 3. ECHOCARDIOGRAPHIC FINDINGS: Global left ventricular systolic function appears hyperdynamic. 4. IMPRESSION: Normal exercise echocardiogram. There is no echocardiographic evidence of ischemia at this level of stress. 5. Other echo and stress findings as noted in report. Findings Rest: Left Ventricle: The left ventricle is probably normal in size. There is normal global left ventricular systolic function. Ejection fraction is estimated to be 65%. There are no left ventricular segmental wall motion abnormalities. Right Ventricle: The right ventricle is normal in size. Right ventricular global systolic function is normal. Pulmonary artery hypertension could not be assessed due to inadequate tricuspid regurgitation jet. Aortic Valve: The aortic valve is tricuspid. Systolic excursion of the aortic valve is normal. There is no evidence of aortic valve stenosis. There is no evidence of aortic regurgitation. Mitral Valve: The mitral valve leaflets appear normal. There is trace mitral regurgitation present. Tricuspid Valve: The tricuspid valve leaflets are morphologically normal. There is trace tricuspid regurgitation present. Pericardium: The pericardium appears normal and there is no evidence of a pericardial effusion. Aorta: The ascending aorta is normal in size. Stress: EKG: normal sinus rhythm. The patient's oxygen saturation was 99% The patient is on no cardiac or blood pressure medications. Misc: Other echo and stress findings as noted in report. Findings Peak: Predicted Values:The patient achieved a maximum heart rate of 181 which is 110% of the maximum predicted heart rate (165 beats/min). The target heart rate was achieved. Left Ventricle: Global left ventricular systolic function appears hyperdynamic. There are no left ventricular segmental wall motion abnormalities. Stress: Patient followed a Seferino protocol. The patient exercised into stage 6. The total exercise duration was:15:13 min. The study was terminated because of fatigue. The patient did not express feelings of chest discomfort. The blood pressure response was normal. Exercise capacity was excellent. The patient achieved a level of 18 METS. There were rare atrial premature beats. There were rare ventricular premature beats. There were no significant ST segment changes. This was a negative electrocardiographic stress test for ischemia. This was a negative echocardiographic stress test. There is no echocardiographic evidence of myocardial ischemia at this level of stress. The patient's oxygen saturation was 96%. Misc: Definity contrast (one 1.5 ml vial)was used to enhance endocardial definition. Excess contrast was discarded. Stress echo, limited spectral Doppler, color Doppler and ECG interpretation performed. Chambers 2D Value Units (Range) Ascending Ao 2.6 cm (2 - 3.5) Wall Motion: Segment Name Rest Peak Base-Anteroseptal Normal Normal Base-Anterior Normal Normal Base-Anterolateral Normal Normal Base-Posterolateral Normal Normal Base-Inferior Normal Normal Base-Inferoseptal Normal Normal Mid-Anteroseptal Normal Normal Mid-Anterior Normal Normal Mid-Anterolateral Normal Normal Mid-Posterolateral Normal Normal Mid-Inferior Normal Normal Mid-Inferoseptal Normal Normal [place]-Septal Normal Normal [place]-Anterior Normal Normal [place]-Lateral Normal Normal [place]-Inferior Normal Normal [place]-Tip Normal Normal This report has been electronically signed by: Isael Hinojosa M.D. 08/21/2017 10:19:13 Images reviewed and interpretation verified [facility] Cardiac Ultrasound Laboratory Sherita Samaniegoandrés SUTTON ECHO ORDERABLES documented in this encounter Visit Diagnoses Diagnosis ST elevation Nonspecific abnormal electrocardiogram (ECG) (EKG) Other chest pain Severe sinus bradycardia Sinoatrial node dysfunction Palpitations documented in this encounter Administered Medications Inactive Administered Medications - up to 3 most recent administrations Medication Order MAR Action Action Date Dose Rate Site perflutren lipid microspheres (DEFINITY) injection 1.5 mL 1.5 mL, Intravenous, ONCE PRN, 1 dose, Starting on Rosy 08/21/17 at 1011, Until Rosy 08/21/17 at 0955, Other, for enhancement of sub-optimal echo images, Echo Lab (Intra-Procedure), Routine Given 08/21/2017 9:55 AM EDT 1.5 mLs documented in this encounter Care Teams Developmental Services Worker Relationship Specialty Start Date End Date Isael Dinh MD [address] [place] [id number] PCP - General Internal Medicine 08/11/17 02/17/22 documented as of this encounter
--- OUTSIDE RECORDS SUMMARY | 2024-03-26 00:34 | XMS_ITS | Encounter Summary ---
Author Organization [place] [address] Care Team Providers Care Case Hardener Name Role Phone Wagner Rodriguez MD Primary Care Provider [phone] Reason for Referral * Consultation (Routine) - Closed Specialty Diagnoses / Procedures Referred By Contac t Referred To Contact Dermatology Diagnoses Basal cell carcinoma (BCC), unspecified site Wagner Rodriguez MD [address] [place] [address] [facility] Dermatology [address] [place] [address] Referral ID Status Reason Start Date Expiration Date V isits Requested Visits Authorized [id number] Closed Consult, Test & Treat PCP Updated and/or Approved 02/18/2022 02/18/2023 6 6 Encounter Details Date Type Department Care Team (Latest Contact Info) Description 02/18/2022 Transcribe Orders eDH Incoming Referrals [phone] Wagner Rodriguez MD [address] [place], [place] [id number] Basal cell carcinoma (BCC), unspecified site Social History Tobacco Use Types Packs/Day Years Used Date Smoking Tobacco: Never Smokeless Tobacco: Never Sex and Gender Information Value Date Recorded Sex Assigned at Not on file Gender Identity Not on file Sexual Orientation Not on file documented as of this encounter Plan of Treatment Scheduled Referrals Name Type Priority Associated Diagnoses Orde r Schedule Referral to Dermatology Outpatient Referral Routine Basal cell carcinoma (BCC), unspecified site Ordered: 02/18/2022 documented as of this encounter Visit Diagnoses Diagnosis Basal cell carcinoma (BCC), unspecified site documented in this encounter Care Teams Case Hardener Relationship Specialty Start Date End Date Wagner Rodriguez MD [address] [place] [address] PCP - General Family Medicine 02/18/22 documented as of this encounter
--- OUTSIDE RECORDS SUMMARY | 2024-03-26 00:34 | XMS_ITS | Encounter Summary ---
Author Organization [facility] Address [address] [place] [address] Care Team Providers Care Manager Shift Name Role Phone Isael Dinh MD Primary Care Provider [phone] Encounter Details Date Type Department Care Team (Late st Contact Info) Description 02/11/2023 Lab Requisition [facility] Pathology & Laboratory Medicine - [facility] [address] [place] [address] Adela Rogers, DELIVERY DRIVER/CUSTOMER SERVICE [address] [place] [id number] Encounter for other general examination Social History Tobacco Use Types Packs/Day Years Used Date Smoking Tobacco: Never Assessed Comments Unknown Sex and Gender Information Value Date Recorded Sex Assigned at Not on file Legal Sex Female 18:34 EST Gender Identity Not on file Sexual Orientation Not on file documented as of this encounter Plan of Treatment Not on file documented as of this encounter Procedures Procedure Name Priority Date/Time Associated Diagnosis Comments PAP TEST Today 02/10/2023 10:25 EDT Encounter for other general examination HPV DNA DETECTION WITH GENOTYPING, PCR Today 02/10/2023 10:25 EDT Encounter for other general examination documented in this encounter Results * HUMAN PAPILLOMAVIRUS (HPV) DETECTION-HIGH RISK TYPES (02/10/2023 10:25 EDT) HPV other High Risk types, PCR Negative Negative 02/20/2023 15:02 EDT [facility] Comment:No E6 or E7 mRNA is detected from HPV types 16,18,31,33,35,39,45,51,52,56,58,59,66, and 68 by appeals analyst mediated amplification. Pap Test CERVIX UTERI STRUCTURE / Unknown 02/10/2023 10:25 EDT 02/18/2023 8:18 EDT us Adela Rogers DELIVERY DRIVER/CUSTOMER SERVICE MICROBIOLOGY - GENERAL OR DERABLES Final Result [facility] [address] [place] [address] * PAP TEST (02/10/2023 10:25 EDT) Specimens A. Cervix and/or Endocervix , ThinPrep Imaging System with Manual Evaluation 02/20/2023 15:02 EDT [facility] Specimen Adequacy Satisfactory for Evaluation - transformation zone component present Scant squamous epithelial component due to contaminant, possibly lubricant or other vaginal contaminant. 02/20/2023 15:02 EDT [facility] General Categorization Negative for intraepithelial lesion or malignancy 02/20/2023 15:02 EDT [facility] Attestation . 02/20/2023 15:02 [facility] at 1502 Clinical History See below 02/21/20 15:02 EDT [facility] HPV The result for the Human Papillomavirus (HPV) Detection-High Risk Types is Negative. No E6 or E7 mRNA is detected from HPV types 16,18,31,33,35,39 ,45,51,52,56,58,5 9,66, and 68 by appeals analyst mediated amplification.Taniya ting was performed on specimen [id number] and was resulted on 02/20/2023 1502 EDT by NICOLAS, LAB INSTRUMENT RESULTS IN 02/20/2023 15:02 EDT [facility] Performing Lab [facility] 02/20/2023 15:02 EDT [facility] Scanned Images 02/20/2023 15:02 EDT [facility] Pap Test CERVIX UTERI STRUCTURE / Unknown 02/10/2023 10:25 EDT 02/11/2023 13:44 EDT us Adela Rogers DELIVERY DRIVER/CUSTOMER SERVICE PATHOLOGY ORDERABLES Cristine l Result [facility] [address] [place] [address] documented in this encounter Visit Diagnoses Diagnosis Encounter for other general examination documented in this encounter Care Teams Manager Shift Relationship Specialty Start Date End Date Isael Dinh MD [address] [place] [address] PCP - General 05/22/10 documented as of this encounter
--- OUTSIDE RECORDS SUMMARY | 2024-03-26 00:34 | XMS_ITS | Referral Summary ---
Author Organization [facility] Address [address] [place] [address] Care Team Providers Care Motor Coach Chauffeur Name Role Phone Isael Dinh MD Primary Care Provider [phone] Social History Tobacco Use Types Packs/Day Years Used Date Smoking Tobacco: Never Assessed Comments Unknown Sex and Gender Information Value Date Recorded Sex Assigned at Not on file Legal Sex Female 18:34 EST Gender Identity Not on file Sexual Orientation Not on file Plan of Treatment Not on file Insurance [facility] Care Teams Motor Coach Chauffeur Relationship Specialty Start Date End Date Isael Dinh MD [address] [place] [id number] PCP - General 05/22/10
--- OUTSIDE RECORDS SUMMARY | 2024-03-26 00:34 | XMS_ITS | Encounter Summary ---
Author Organization Counts Include [facility] Address [facility] [place] [address] Care Team Providers Care Integrated Circuit Layout Designer Name Role Phone Isael Dinh MD Primary Care Provider [phone] Reason for Visit * Consultation (ORTIZ) - Closed Specialty Diagnoses / Procedures Referred By Contac t Referred To Contact Cardiology Diagnoses Chest pain intermittent chest pain, Abnormal EKG - St elevation Isael Dinh MD [address] [place] [address] [facility] [place] Card[facility] [address] [place] [phone] Referral ID Status Reason Start Date Expiration Date V isits Requested Visits Authorized [id number] Closed Consult, Test & Treat Connection Center PCP Updated and/or Approved 08/11/2017 08/11/2018 6 6 Encounter Details Date Type Department Care Team (Late st Contact Info) Description 08/21/2017 10:00 AM EDT Office Visit Cardiology at [address] [phone] Ankit Lange MD [facility] [place] [address] Chest pain, unspecified type Social History Tobacco Use Types Packs/Day Years Used Date Smoking Tobacco: Never Smokeless Tobacco: Never Sex and Gender Information Value Date Recorded Sex Assigned at Not on file Gender Identity Not on file Sexual Orientation Not on file documented as of this encounter Last Filed Vital Signs Vital Sign Reading Time Taken Comments Blood Pressure 110/72 08/21/2017 10:16 AM EDT Pulse 75 08/21/2017 10:16 AM EDT Temperature - - Respiratory Rate - - Oxygen Saturation 100% 08/21/2017 10:16 AM EDT Inhaled Oxygen Concentration - - Weight 50.8 kg (112 lb) 08/21/2017 10:16 AM EDT Height 170.2 cm (5' 7) 08/21/2017 10:16 AM EDT Body Mass Index 17.54 08/21/2017 10:16 AM EDT documented in this encounter Progress Notes * Ankit Lange MD - 08/21/2017 10:00 AM EDT HPI: Shahida Allen is a 57 y.o. year old female coming in for the evaluation of chest pain. She was walking while in [place], and had some chest pain and shortness of breath. But this has improved. No chest pains recently. She does walk regularly 5-7 miles every day. No chest pain with this. This happened with red tide warnings. PMHX Chest pain MEDS: None reviewed SOCHX Social History Social History ??? Marital status: Spouse name: N/A ??? Number of children: N/A ??? Years of education: N/A Social History Main Topics ??? Smoking status: Never Smoker ??? Smokeless tobacco: Never Used ??? Alcohol use None ??? Drug use: None ??? Sexual activity: Not Asked Other Topics Concern ??? None Social History Narrative ??? None Non smoker FAMHX No family history on file. ROS Negative for blood in stool or urine. No fevers or chills. No recent syncope. Otherwise all other systems were reviewed and found to be negative. Physical Examination Most Recent Vitals: 08/21/17 1016 BP: 110/72 Pulse: 75 SpO2: 100% General: no acute distress Behavioral: Alert and oriented to person place and time Heent: Cranial nerves 2-12 grossly intact, JVP not elevated, no carotid bruits CV: RRR normal s1 and s2 without murmurs present Lungs: CTA bilaterally Abd: soft, nt, bs positive, no pulsatile masses Extrem: no lower extremity edema Pulses: radial Pulses = bilaterally Skin: warm, dry without rashes Neuro: muscle strength grossly = bilaterally EKG: Performed on stress test LABS: Labs reviewed by myself No results found for this or any previous visit (from the past 24 hour(s)). Assessement and Plan: 57 year old female with chest pain, now resolved. 1. Normal stress testing. Normal holter. Chest pain resolved. 2. Follow up as needed. documented in this encounter Plan of Treatment Not on file documented as of this encounter Visit Diagnoses Diagnosis Chest pain, unspecified type documented in this encounter Care Teams Integrated Circuit Layout Designer Relationship Specialty Start Date End Date Isael Dinh MD [address] [place] [id number] PCP - General Internal Medicine 08/11/17 02/17/22 documented as of this encounter
--- OUTSIDE RECORDS SUMMARY | 2024-03-26 00:34 | XMS_ITS | Clinical Summary ---
Author Organization [facility] Address [address] [place] [address] Care Team Providers Care Cloth Shrinking Machine Operator Helper Name Role Phone Isael Dinh MD Primary Care Provider [phone] Social History Tobacco Use Types Packs/Day Years Used Date Smoking Tobacco: Never Assessed Comments Unknown Sex and Gender Information Value Date Recorded Sex Assigned at Not on file Legal Sex Female 18:34 EST Gender Identity Not on file Sexual Orientation Not on file Plan of Treatment Health Maintenance Due Date Last Done Comments Hepatitis C Screen 1960 COVID-19 Vaccine (2023-25 season) 2023 RSV Immunization ( o r 60+ Years) (1 - 1-dose 75+ series) 2037 Insurance [facility] Care Teams Cloth Shrinking Machine Operator Helper Relationship Specialty Start Date End Date Isael Dinh MD [address] [place] [id number] PCP - General 05/22/10
--- OUTSIDE RECORDS SUMMARY | 2024-03-26 00:34 | XMS_ITS | Encounter Summary ---
[place] [address] Care Team Providers Care Mucker Operator Name Role Phone Wagner Rodriguez MD Primary Care Provider [phone] Encounter Details Date Type Department Care Team (Latest Contact Info) Description 08/27/2022 Travel Social History Tobacco Use Types Packs/Day Years Used Date Smoking Tobacco: Never Smokeless Tobacco: Never Sex and Gender Information Value Date Recorded Sex Assigned at Not on file Gender Identity Not on file Sexual Orientation Not on file documented as of this encounter Plan of Treatment Not on file documented as of this encounter Visit Diagnoses Not on filedocumented in this encounter Care Teams Mucker Operator Relationship Specialty Start Date End Date Wagner Rodriguez MD [address] [place] [address] PCP - General Family Medicine 02/18/22 documented as of this encounter
--- OUTSIDE RECORDS SUMMARY | 2024-03-26 00:34 | XMS_ITS | Encounter Summary ---
Author Organization [facility] Address [address] [place] [address] Care Team Providers Care Ventilating Expert Name Role Phone Isael Dinh MD Primary Care Provider [phone] Encounter Details Date Type Department Care Team (Late st Contact Info) Description 04/11/2021 Lab Requisition [facility] Pathology & Laboratory Medicine - [facility] [address] [place] [address] Wagner Rodriguez MD [address] [place], [place] [id number] Encounter for other general examination Social History [...] Procedure Name Priority Date/Time Associated Diagnosis Comments SURGICAL PATHOLOGY Today 04/11/2021 9: 30 EST Encounter for other general examination documented in this encounter Results * SURGICAL PATHOLOGY (04/11/2021 9:30 EST) Note to Patient The following pathology results have been interpreted by your pathologist and may be available to you before your health provider has had the opportunity to review them. Please allow time for your provider to receive these results and explore management options, if applicable. 04/13/2021 15:21 EST [facility] Final Diagnosis A. SKIN OF SHOULDER, RIGHT, EXCISION: - Basal cell carcinoma, nodular type, completely excised. 04/13/2021 15:21 [facility] Attestation By the signature below, the attending physician certifies that they have 1) personally conducted a gross and/or microscopic examination of the described specimen(s), and/or personally interpreted the results of laboratory testing of the described specimen(s), and 2) personally rendered or confirmed the above diagnosis. 04/13/2021 15:21 [facility] at 1521 Clinical History Nodule R shoulder 04/13/2021 15:21 [facility] Gross Description A. Received in formalin labelled with proper patient identification (initials L, W) and R shoulder is an unoriented ellipse excision of mensah skin (1.4 x 0.9 cm and is excised to a depth of 0.3 cm). There is a central white focally pale mensah irregular lesion (0.6 x 0.5 x 0.1 cm). The margins are inked blue. The specimen is serially sectioned and entirely submitted as two tips, reverse en face in A1, and central sections in A2-A3. Thom Linder 04/12/2021 8:16 04/13/2021 15:21 [facility] Performing Lab [facility] 04/13/2021 15:21 [facility] Scanned Images 04/13/2021 15:21 [facility] Tissue TISSUE SPECIMEN FROM SKIN / Unknown 04/11/2021 9:30 EST 04/11/2021 23:41 EST us Wagner Rodriguez MD PATHOLOGY ORDERABLES Final Resul t [facility] [address] [place] [address] documented in this encounter Visit Diagnoses Diagnosis Encounter for other general examination documented in this encounter Care Teams Ventilating Expert Relationship Specialty Start Date End Date Isael Dinh MD [address] [place] [id number] PCP - General 05/22/10 documented as of this encounter
--- OUTSIDE RECORDS SUMMARY | 2024-03-26 00:34 | XMS_ITS | Encounter Summary ---
[place] [address] Care Team Providers Care Station Mechanic Apprentice Name Role Phone Wagner Rodriguez MD Primary Care Provider [phone] Encounter Details Date Type Department Care Team (Latest Contact Info) Description 10/31/2022 Travel Social History Tobacco Use Types Packs/Day [...] on filedocumented in this encounter Care Teams Station Mechanic Apprentice Relationship Specialty Start Date End Date Wagner Rodriguez MD [address] [place] [address] PCP - General Family Medicine 02/18/22 documented as of this encounter
--- OUTSIDE RECORDS SUMMARY | 2024-03-26 00:34 | XMS_ITS | Encounter Summary ---
Author Organization [facility] Address [facility] [address] [place] [address] Care Team Providers Care Senior Manager Mergers & Acquisitions Name Role Phone Wagner Rodriguez MD Primary Care Provider Reason for Visit * Consultation (Routine) - Closed Specialty Diagnoses / Procedures Referred By Kalpesh macedo Referred To Contact Dermatology Diagnoses Basal cell carcinoma (BCC), unspecified site Wagner Rodriguez MD [address] [place] [address] [facility] Dermatology [address] [place] [address] Referral ID Status Reason Start Date Expiration Date V isits Requested Visits Authorized [id number] Closed Consult, Test & Treat PCP Updated and/or Approved 02/18/2022 02/18/2023 6 6 Encounter Details Date Type Department Care Team (Late st Contact Info) Description 08/27/2022 1:30 PM EDT Office Visit Dermatology at [facility] [address] [place] [address] Sandra Cameron MD [facility] [place] [address] History of basal cell carcinoma (BCC); Neoplasm of unspecified behavior of bone, soft tissue, and skin; Flat wart; Lentigines; Seborrheic keratoses; Multiple benign nevi of upper extremity, lower extremity, and trunk; Love angioma; Verruca vulgaris Social History Tobacco Use Types Packs/Day Years Used Date Smoking Tobacco: Never Smokeless Tobacco: Never Sex and Gender Information Value Date Recorded Sex Assigned at Not on file Gender Identity Not on file Sexual Orientation Not on file documented as of this encounter Progress Notes * Sandra Cameron MD - 08/27/2022 1:30 PM EDT Images from the original note were not included. DEPARTMENT OF DERMATOLOGY Medical Dermatology Clinic Provider: Sandra Cameron MD Patient's preferred name Shahida Preferred contact method for results []Phone []myD-H []Letter Detailed phone message OK? Are there any other people with whom we may discuss your care? Past Medical History Date, location, treatment Melanoma N Dysplastic nevi N SCC N BCC ~2020 BCC, on right shoulder excisional bx by PCP AKs N UV Exposure & Protection N N Family History Details Melanoma Unknown NMSC Unknown Other relevant family history Unknown Social History Occupation: Retired Hobbies: Other: , 2 children Pre-Procedure Screening Details Allergy to lidocaine, epinephrine, Dermabond, chlorhexidine, or adhesives N Bleeding disorder or blood thinners N Pacemaker, defibrillator, deep brain stimulator, cochlear implant N History of Present Illness: Shahida Allen is a 62 y.o. Patient is referred to the clinic at the request of Wagner Rodriguez for a FSE. Hx of BCC. Patient reports: - Lesion on neck, pt denies of itch or pain from site. No bleeding. - New lesion on chest and on forehead - Hx of allergy to sun when younger. Review of Systems: General: Feeling well. Skin: No other skin concerns. Medications: Reviewed in eD-H Allergies: Reviewed in eD-H Skin Examination: Full skin examination: Patient asked to undress to their comfort level. Verbalized that the provider's preference is that patient remove all clothing and that the provider will not examine areas patient elects to keep covered. Examination of the scalp, hair, head, face, ears, neck, chest, axillae, abdomen, back, buttocks, and upper and lower extremities was normal with the exception of the findings below. Genitalia not examined. Assessment/Plan # History of BCC - Well-healed scar on the right shoulder per skin history. - No evidence of recurrence; will continue to monitor. # Neoplasms of unspecified behavior of skin x2 - A. ISK vs BCC - 1cm pink smooth plaque with rolled borders on the right clavicle (figure 1) B. BCC vs Sebaceous Hyperplasia vs Other - 3mm pink shiny papule with central dell on the left forehead (figure 2) - Joint decision to pursue shave biopsy today to clarify nature of lesion - Shave biopsy procedure note: Location: A. Right clavicle B. Left forehead The patient's consent was obtained. Risk of incomplete removal, scarring, bleeding, infection, and pain were reviewed. Alcohol preparation was used. Anesthesia was obtained with 1.0% lidocaine with epinephrine. A shave biopsy was obtained and the specimen was sent to pathology for histologic evaluation. Hemostasis was obtained with AlCl and/or electrocautery. Vaseline and bandage were applied. Wound care was reviewed. There were no complications; the patient tolerated the procedure well. # Flat warts vs seborrheic keratoses - On bilateral posterior lower legs there are 1-3mm flat roundflesh colored papules - Discussed skin findings on exam. - These are not bothersome to patient. No treatment necessary. Can consider LN2 if bothersome # Graphite tattoo - Dominique macule on the right palm. - Discussed benign nature of lesion and provided reassurance. No treatment necessary. # Solar lentigines - many 0.3-0.6cm light-brown evenly pigmented, well- demarcated macules in a photodistributed pattern on the face, trunk and extremities. - Recommend diligent sun protection (hats/shade/clothing/sunscreen) - Discussed warning signs of skin cancer # Seborrheic keratoses - few mensah/brown waxy stuck-on papules and plaques on the trunk and extremities. - Reassured of the benign nature of these lesions - No treatment needed # Melanocytic nevi - few scattered medium-brown macules and papules on the head, trunk, and extremities. - Morphology reassuring for benign nevi. - Reassured of benign appearance on exam today. - Reviewed warning signs of skin cancer - Recommend daily sun protection with protective clothing and SPF 30+ # Love angiomas - scattered on the trunk and extremities are few bright red smooth papules. - Reassured of the benign nature of these lesions. No treatment needed. # Verruca - Hyperkeratotic verrucous papules with thrombosed vessels on dermoscopy on the anterior neck x1 - Discussed dx, viral etiology, and treatments including clinical monitoring, LN2, OTC salicylic acid wart pads, Magic wart cream - Lesions can be difficult to treat and can recur. They often require multiple rounds of treatment - Joint decision to treat with LN2. Risks discussed including discomfort, blister formation, discoloration, scar, recurrence. Procedure Note: Procedure: Destruction of lesion(s) with cryotherapy. Number: 1 Location: as above Discussed procedure and expectations including risks (including risk of recurrence) and benefits. Verbal consent obtained. Frozen with LN2, 15-30 second thaw time, TWICE. There were no complications;the patient tolerated the procedure well. Post-procedure expectations and wound care were reviewed. Figure 1 Figure 2 Photo(s) taken and charted with patient's verbal consent. Other: ??? N/A RTC: Pending path / 1 year FSE / Hx of BCC / Sooner as needed []Note routed to alumnae secretary [x]Recall placed in scheduling system []Appointment scheduled at checkout Scribe attestation: KARLA Madison has performed the documentation for this encounter in thepresence of and acting as a scribe for Sandra Cameron MD. I performed the above scribed service and agree with the accuracy of the documentation in this encounter. Reviewed and signed by: Sandra Cameron MD Dermatology [facility] * Sandra Cameron MD - 08/27/2022 1:30 PM EDT Skin biopsy results reviewed. For A) BCC, recommend ED&C. For B) BCC, recommend Mohs surgery. [id number] ? Location: [facility] The signing pathologist has (i) examined the relevant preparation(s) for the specimen(s) and (ii) rendered or confirmed the diagnosis(es). ? Surgical Pathology DIAGNOSIS A - Right clavicle, skin shave biopsy: - Basal cell carcinoma, superficial pattern, present at the peripheral and deep ??specimen edges B - Left forehead, skin shave biopsy: - ??Basal cell carcinoma, superficial and nodular patterns, ?? present at the peripheral ??and deep specimen edges documented in this encounter Plan of Treatment Not on file documented as of this encounter Procedures Procedure Name Priority Date/Time Associated Diagnosis Comments SPECIMEN TO PATHOLOGY Routine 08/27/2022 2:18 PM EDT Neoplasm of unspecified behavior of bone, soft tissue, and skin SPECIMEN TO PATHOLOGY Routine 08/27/2022 2:18 PM EDT Neoplasm of unspecified behavior of bone, soft tissue, and skin SURGICAL PATHOLOGY REPORT Routine 08/27/2022 2:14 PM EDT documented in this encounter Results * Specimen to Pathology (08/27/2022 2:18 PM EDT) AP Specimen 08/27/2022 2:18 PM EDT 08/27/2022 2:18 PM EDT Narrative [facility] - 08/27/2022 2:18 PM EDT Specimen requisition ordered. ??Separate Pathology report to follow Sandra Cameron MD PATHOLOGY/CYTOLOGY O RDERABLES [facility] [place] [address] * Specimen to Pathology (08/27/2022 2:18 PM EDT) AP Specimen 08/27/2022 2:18 PM EDT 08/27/2022 2:18 PM EDT Narrative [facility] - 08/27/2022 2:18 PM EDT Specimen requisition ordered. ??Separate Pathology report to follow Sandra Cameron MD PATHOLOGY/CYTOLOGY O [facility] [place] [id number] * (ABNORMAL) Surgical Pathology Report (08/27/2022 2:14 PM EDT) Final Diagnosis [id number] ? Location: [facility] The signing pathologist has (i) examined the relevant preparation(s) for the specimen(s) and (ii) rendered or confirmed the diagnosis(es). . ?Surgical Pathology DIAGNOSIS A - Right clavicle, skin shave biopsy: - Basal cell carcinoma, superficial pattern, ?present at the peripheral and deep specimen edges B - Left forehead, skin shave biopsy: - ??Basal cell carcinoma, superficial and nodular patterns, ?? present at the peripheral and deep specimen edges Electronically signed by: ?Magdy GARCIA, PhD, [facility] Verified: ??09/07/2022 11:49 ??Dermatopathol ogist Performed at: ??-[facility] [place] Dept. of Pathology, [place] [address] Metal Hanger: Nancy Cornejo MD, AP, ??CLIA Certificate: [id number] DISCUSSION THIS RESULT REQUIRES PHYSICIAN/A.P.P . FOLLOW UP SPECIMEN(S) SUBMITTED A - A. Right clavicle, skin shave biopsy (1) B - B. Left forehead, skin shave biopsy (1) CLINICAL INFORMATION A - ISK vs BCC-1 cm pink smooth plaque with rolled borders B - BCC vs sebaceous hyperplasia vs other-3 mm pink shiny papule with central dell SPECIMEN PROCESSING A - Labeled/Fixativ e: Right clavicle, formalin. Quantity/Size: ??Single, 0.6 x 0.6 x 0.1 cm. Tissue Description: Shave of mensah skin. Sections/Proces sing: Inked, bisected and entirely submitted in 1 cassette labeled A1. B - Labeled/Fixativ e: Left forehead, formalin. Quantity/Size: ??Single, 0.5 x 0.3 x 0.1 cm. Tissue Description: Shave of mensah skin. Sections/Proces sing: Inked, bisected and entirely submitted in 1 cassette labeled B1. ??sdy(A) 09/07/2022 11:49 AM EDT [facility] SPECIMEN FROM SKIN / Unknown 08/27/2022 2:14 PM EDT 08/27/2022 2:14 PM EDT SPECIMEN FROM SKIN / Unknown 08/27/2022 2:14 PM EDT 08/27/2022 2:14 PM EDT Sandra Cameron MD PATHOLOGY/CYTOLOGY O RDERABLES [facility] [place] [id number] [facility] [place] [address] documented in this encounter Visit Diagnoses Diagnosis History of basal cell carcinoma (BCC) Neoplasm of unspecified behavior of bone, soft tissue, and skin Flat wart Other specified viral warts Lentigines Other dyschromia Seborrheic keratoses Multiple benign nevi of upper extremity, lower extremity, and trunk Love angioma Nevus, non-neoplastic Verruca vulgaris Viral warts, unspecified documented in this encounter Care Teams Senior Manager Mergers & Acquisitions Relationship Specialty Start Date End Date Wagner Rodriguez MD [address] [place] [address] PCP - General Family Medicine 02/18/22 documented as of this encounter
--- OUTSIDE RECORDS SUMMARY | 2024-03-26 00:34 | XMS_ITS | Encounter Summary ---
Author Organization [facility] Address [facility] [place] [address] Care Team Providers Care Vp Global Name Role Phone Wagner Rodriguez MD Primary Care Provider [phone] Encounter Details Date Type Department Care Team (Late st Contact Info) Description 03/23/2024 8:15 AM EST Office Visit Dermatology at [facility] [address] [place] [address] Sandra Cameron MD [facility] [place] [address] Skin cancer screening; History of nonmelanoma skin cancer; SK (seborrheic keratosis); Love angioma; Lentigines; Multiple benign melanocytic nevi of upper and lower extremities and trunk; AK (actinic keratosis) Social History Tobacco Use Types Packs/Day Years Used Date Smoking Tobacco: Never Smokeless Tobacco: Never Sex and Gender Information Value Date Recorded Sex Assigned at Not on file Gender Identity Not on file Sexual Orientation Not on file documented as of this encounter Progress Notes * Sandra Cameron MD - 03/23/2024 8:15 AM EST Images from the original note were not [...] on right shoulder excisional bx by PCP 08/27/22, right clavicle, s/p ED&C 10/31/22 08/27/22, left forehead, s/p Mohs 10/31/22 AKs N UV Exposure & Protection N N Family History Details Melanoma Unknown NMSC Unknown Other relevant family history Unknown Social History Occupation: Retired Hobbies: Other: , 2 children Pre-Procedure Screening Details Allergy to lidocaine, epinephrine, Dermabond, chlorhexidine, or adhesives N Bleeding disorder or blood thinners N Pacemaker, defibrillator, deep brain stimulator, cochlear implant N History of Present Illness: Shahida Allen is a 63 y.o. Patient returns to clinic today for a full skin exam. Patient reports a spot on the scalp that she started to notice in January, she originallythought it was a bug bite as it was itchy. Then when getting her hair done it was hit with the comband was sore. Last visit at Dermatology: 08/27/2022 Last visit with this provider: 08/27/2022 Medications: Reviewed in eD-H Allergies: Reviewed in [...] findings below. Genitalia not examined. Assessment/Plan # Actinic keratoses - ill-defined scaly pink papule(s) on the chest x5, vertex scalp x1, left adventism x1, - Reviewed diagnosis with patient, premalignant potential, and treatment options including clinicalmonitoring (risks include progression), LN2 (risks including discoloration, discomfort, and possible recurrence) - Joint decision to proceed with LN2 - Procedure: Liquid Nitrogen Cryotherapy Number of lesions - 7 The patient's verbal consent for liquid nitrogen treatment was obtained. Risks and benefits were explained. The possible need for additional liquid nitrogen was reviewed. Risks of discoloration, blister formation, discomfort, and recurrence discussed. Lesions were treated with LN2 x15-30 second freeze-thaw cycle. The patient tolerated the procedure well. Wound care was reviewed. - RTC for any lesions that do not resolve with treatment # Solar lentigines - 0.3-0.6cm light-brown evenly pigmented, well-demarcated macules in a photodistributed pattern on the [...] of these lesions. No treatment needed. # Graphite tattoo - Dominique macule on the right palm. - Discussed benign nature of lesion and provided reassurance. No treatment necessary. # History of BCC - Well-healed scars per skin history. - No evidence of recurrence; will continue to monitor. Other: Sun protection discussed (protective clothing and SPF30+ broad-spectrum sunscreen) RTC: 1 year for FSE // sooner as needed []Note routed to secretary bookkeeper [x]Recall placed in scheduling system []Appointment scheduled at checkout Scribe attestation: KARLA Ivy has performed the documentation for this encounter in the presence of and acting as a scribe for Sandra Cameron MD. I performed the above scribed service and agree with the accuracy of the documentation in this encounter. Reviewed and signed by: Sandra Cameron MD Dermatology [facility] documented in this encounter Plan of Treatment Not on file documented as of this encounter Visit Diagnoses Diagnosis Skin cancer screening Screening for malignant neoplasm of the skin History of nonmelanoma skin cancer Personal history of other malignant neoplasm of skin SK (seborrheic keratosis) Other seborrheic keratosis Love angioma Nevus, non-neoplastic Lentigines Other dyschromia Multiple benign melanocytic nevi of upper and lower extremities and trunk AK (actinic keratosis) Actinic keratosis documented in this encounter Care Teams Vp Global Relationship Specialty Start Date End Date Wagner Rodriguez MD [address] [place] [address] PCP - General Family Medicine 02/18/22 documented as of this encounter
--- OUTSIDE RECORDS SUMMARY | 2024-03-26 00:34 | XMS_ITS | Encounter Summary ---
Author Organization [facility] Address [facility] [place] [place] [address] Care Team Providers Care Bank Messenger Name Role Phone Wagner Rodriguez MD Primary Care Provider [phone] Reason for Referral * Consultation (Routine) - Closed Specialty Diagnoses / Procedures Referred By Kalpesh macedo Referred To Contact Dermatology Diagnoses Basal cell carcinoma (BCC), unspecified site Basal cell carcinoma (BCC) of left forehead Sandra Cameron MD [facility] [place] [address] [place] [address] [facility] Mohs [address] [place] [address] Referral ID Status Reason Start Date Expiration Date V isits Requested Visits Authorized [id number] Closed Consult, Test & Treat 09/11/2022 09/11/2023 1 1 Encounter Details Date Type Department Care Team (Late st Contact Info) Description 09/11/2022 Orders Only Dermatology at [facility] [address] [place] [id number] Sandra Cameron MD [facility] [place] [address] [address] Basal cell carcinoma (BCC), unspecified site; Basal [...] forehead documented in this encounter Care Teams Bank Messenger Relationship Specialty Start Date End Date Wagner Rodriguez MD [address] [place] [address] PCP - General Family Medicine 02/18/22 documented as of this encounter
--- OUTSIDE RECORDS SUMMARY | 2024-03-26 00:34 | XMS_ITS | Clinical Summary ---
Author Organization [facility] Address [facility] [place] [address] Care Team Providers Care Nuclear Medicine Specialist Name Role Phone Wagner Rodriguez MD Primary Care Provider [phone] Allergies Active Allergy Reactions Criticality Noted Date Comments Doxycycline Rash 08/21/2017 Medications Medication Sig Dispensed Refills Start Date End Date Status multivit-min/folic acid/dih557 (ALIVE WOMEN'S GUMMY VITAMINS ORAL) Take by mouth daily. Active calcium carbonate/vitamin D3 (CALCIUM + D ORAL) Take by mouth as needed. Active naproxen sodium (ALEVE) 220 mg Capsule Take by mouth as needed. Active UNABLE TO FIND Med Name: Serovital Renewal Complex. Takes 4 tablets daily Active citalopram (CeleXA) 10 mg tablet Take 10 mg by mouth daily. Active Active Problems Problem Noted Date Diagnosed Date Chest pain 08/21/2017 Encounters Date Type Department Care Team Description 03/23/2024 8:15 AM EST Office Visit Dermatology at [facility] [address] [place] [address] Sandra Cameron MD Skin cancer screening; History of nonmelanoma skin cancer; SK (seborrheic keratosis); Love angioma; Lentigines; Multiple benign melanocytic nevi of upper and lower extremities and trunk; AK (actinic keratosis) 03/23/2024 Travel from Last 3 Months Social History Tobacco Use Types Packs/Day Years Used Date Smoking Tobacco: Never Smokeless Tobacco: Never Sex and Gender Information Value Date Recorded Sex Assigned at Not on file Gender Identity Not on file Sexual Orientation Not on file Last Filed Vital Signs Vital Sign Reading [...] Mass Index 17.54 08/21/2017 10:16 AM EDT Plan of Treatment Health Maintenance Due Date Last Done Comments CT Colonography 1962 Colonoscopy 1962 Colorectal Cancer Screening 1962 FIT DNA 1962 FIT 1962 Sigmoidoscopy (10 year) with FIT yearly 1962 Sigmoidoscopy 1962 HIV screen 1980 Hepatitis C Screening 1980 Tetanus/Diphtheria/Pertussis Vaccines (1 - Tdap) 07/27 HPV test 1992 PAP Smear 1992 Breast Cancer Share Decision Needed 2002 Breast Cancer screening 2002 Zoster vaccine (1 of 2) 2012 Advance Directive 2017 Covid-19 Vaccine ( - 2023- season) 2023 Influenza (Flu) vaccine (1 o f 1 - Influenza standard series) 12/28/2023 Care Teams Nuclear Medicine Specialist Relationship Specialty Start Date End Date Wagner Rodriguez MD [address] [place] [address] PCP - General Family Medicine 02/18/22
--- OUTSIDE RECORDS SUMMARY | 2024-03-26 00:34 | XMS_ITS | Encounter Summary ---
[place] [address] Care Team Providers Care Instructional Technology Specialist Name Role Phone Wagner Rodriguez MD Primary Care Provider [phone] Encounter Details Date Type Department Care Team (Latest Contact Info) Description 03/23/2024 Travel Social History Tobacco Use Types Packs/Day [...] on filedocumented in this encounter Care Teams Instructional Technology Specialist Relationship Specialty Start Date End Date Wagner Rodriguez MD [address] [place] [address] PCP - General Family Medicine 02/18/22 documented as of this encounter
--- OUTSIDE RECORDS SUMMARY | 2024-03-26 00:35 | XMS_ITS | Encounter Summary ---
Author Organization [facility] Address [address] [place] [address] Care Team Providers Care Instrument Lens Grinder Apprentice Name Role Phone Unavailable Primary Care Provider Unavailabl e Encounter Details Date Type Department Care Team (Late st Contact Info) Description 12/23/2005 Results Only [facility] - Maple conversion [address] [place] [address] Carol Montoya, CARMEN Social History Tobacco Use Types Packs/Day Years [...] Procedure Name Priority Date/Time Associated Diagnosis Comments CYTOPATHOLOGY Routine 12/23/2005 0:00 EDT documented in this encounter Results * CYTOPATHOLOGY (12/23/2005 0:00 EDT) Pathology Report: CYTOPATHOLOGY REPORT Reports generated via electronic interface contain original data; however they are lacking the format of the original report. Caution should be taken when reading/interpreti ng unformatted reports. Name: ? YOSI MADRIGAL ? Accession #: ? [id number] : ? 1960 (Age: 45) ??F ?Collect Date: ? 12/23/2005 Location: ? [facility] ? Receive Date: ? 12/24/2005 Provider: ?CAROL MONTOYA ACCOUNTING MANAGER CPA Copy to: ? Specimen/Source: ?ThinPrep Pap Test, Cervix/Endocervix, processed on [employer] ThinPrep Imaging System, with manual evaluation Last Menstrual Period: ? 7 end 06 Other: ? Additional clinical information: DUB HPVA - HPV testing requested if ASC-US on the current ThinPrep Pap test. ? SPECIMEN ADEQUACY ? Satisfactory for Evaluation - transformation zone component present GENERAL CATEGORIZATION ? Negative for Intraepithelial Lesion or Malignancy ? Document reviewed and electronically signed by: ? YOEL Hankins(ASCP) ? Report Date: ??12/25/2005 11:16 End of Report [facility] 12/23/2005 12/24/2005 us Carol Montoya NP PATHOLOGY ORDERABLES Final Re sult [facility] [address] [place] [address] documented in this encounter Visit Diagnoses Not on filedocumented in this encounter
--- OUTSIDE RECORDS SUMMARY | 2024-03-26 00:35 | XMS_ITS | Encounter Summary ---
Author Organization [facility] Address [address] [place] [address] Care Team Providers Care Court Recorder Name Role Phone Unavailable Primary Care Provider Unavailabl e Encounter Details Date Type Department Care Team (Late st Contact Info) Description 02/01/2008 Before PRISM Converted Visit (Maple) [facility] - Maple conversion [address] [place] [address] Carol Montoya, MARKETING STRATEGY ANALYST Social History Tobacco Use Types Packs/Day Years [...] Priority Date/Time Associated Diagnosis Comments CYTOPATHOLOGY Routine 02/01/2008 0:00 EDT documented in this encounter Results * CYTOPATHOLOGY (02/01/2008 0:00 EDT) Pathology Report: CYTOPATHOLOGY REPORT ? Reports generated via electronic interface contain original data; ? however they are lacking the format of the original report. ? Caution should be taken when reading/interpreti ng unformatted reports. ? Name: ? YOSI ALLEN ? Accession #: ? [id number] ? : ? 1960 (Age: 47) ??F ?Collect Date: ? 02/01/2008 ? Location: ? [facility] ? Receive Date: ? 02/02/2008 ? Provider: ?CAROL M BRITTNY MARKETING STRATEGY ANALYST ? Copy to: ? Specimen/Source: ?Pap Test, Cervix/Endocervix, ThinPrep Imaging System ? with manual evaluation ? Last Menstrual Period: ? 09/17/08 ? Other: ? HPVA - HPV testing requested if ASC-US on the current ThinPrep Pap test. ? SPECIMEN ADEQUACY ? Satisfactory for Evaluation ? - transformation zone component present ? GENERAL CATEGORIZATION ? Negative for Intraepithelial Lesion or Malignancy ? Document reviewed and electronically signed by: ? Chaparrita [place](ASCP) ? Report Date: ??02/04/2008 07:44 ? End of Report ? [facility] 02/01/2008 02/02/2008 us Carol Montoya MARKETING STRATEGY ANALYST PATHOLOGY ORDERABLES Final Re sult [facility] [address] [place] [address] documented in this encounter Visit Diagnoses Not on filedocumented in this encounter
--- OUTSIDE RECORDS SUMMARY | 2024-03-26 00:35 | XMS_ITS | Encounter Summary ---
Author Organization [facility] Address [address] [place] [address] Care Team Providers Care Customer Care Associate Name Role Phone Isael Dinh MD Primary Care Provider [phone] Encounter Details Date Type Department Care Team (Late st Contact Info) Description 08/16/2013 Results Only [facility] Services - [facility] ([address] [id number] Carol Montoya, CARMEN Social History Tobacco Use [...] Name Priority Date/Time Associated Diagnosis Comments PAP TEST- RESULT ONLY Routine 08/16/2013 0:00 EDT documented in this encounter Results * PAP TEST- RESULT ONLY (08/16/2013 0:00 EDT) Pathology Report: CYTOPATHOLOGY REPORT Reports generated via electronic interface contain original data; however they are lacking the format of the original report. Caution should be taken when reading/interpreti ng unformatted reports. Name: ? YOSI MADRIGAL ? Accession #: ? [id number] ? : ? 1960 (Age: 53) ??F ?Collect Date: ? 08/16/2013 ? Location: ? [facility] ? Receive Date: ? 08/17/2013 ? Provider: CAROL MONTOYA WELDER BOILERMAKER Copy to: ISAEL DINH MD ? Final Report SPECIMEN ADEQUACY ? Satisfactory for Evaluation - transformation zone component present GENERAL CATEGORIZATION ? Negative for Intraepithelial Lesion or Malignancy ?? Specimen/Source: ??Pap Test, Cervix/Endocervix, ThinPrep Imaging System with manual evaluation Document reviewed and electronically signed by: ? CATIA Plascencia(ASCP) ? Report ??Date: 08/27/2013 09:43 HPV with Pap Test ? Date Ordered: ? 08/31/2013 ? Status: ?? Signed Out ?Date Complete: ? 08/31/2013 ? By: ??System Interface ? Date Reported: ? 08/31/2013 ? Interpretation RESULT: Negative for HPV. No E6 or E7 mRNA is detected from HPV types 16,18,31,33,35, 39,45,51,52,56,58, 59,66, and 68 by self propelled mining machine operator mediated amplification. Comments Document reviewed and electronically signed by: ? System Interface ? Report date: 08/31/2013 By the signature above, the attending physician certifies that he/she has personally conducted a gross and/or microscopic examination of the described specimens and rendered or confirmed the above diagnosis. End of Report [facility] 08/16/2013 08/17/2013 us Carol Montoya WELDER BOILERMAKER PATHOLOGY ORDERABLES Final Re sult [facility] [address] [place] [address] documented in this encounter Visit Diagnoses Not on filedocumented in this encounter Care Teams Customer Care Associate Relationship Specialty Start Date End Date Isael Dinh MD [address] [place] [address] PCP - General 05/22/10 documented as of this encounter
--- OUTSIDE RECORDS SUMMARY | 2024-03-26 00:35 | XMS_ITS | Encounter Summary ---
Author Organization [facility] Address [address] [place] [address] Care Team Providers Care Corrections Sergeant Name Role Phone Unavailable Primary Care Provider Unavailabl e Encounter Details Date Type Department Care Team (Late st Contact Info) Description 05/18/2010 Results Only [facility] Laboratory Services - [facility] [address] [place], [place] [address] Maurice Almanzar MD [address] [place], [place] [id number] Social History Tobacco Use Types Packs/Day Years [...] Priority Date/Time Associated Diagnosis Comments SURGICAL PATHOLOGY Routine 05/18/2010 0:00 EST documented in this encounter Results * SURGICAL PATHOLOGY (05/18/2010 0:00 EST) Pathology Report: SURGICAL PATHOLOGY REPORT ? Reports generated via electronic interface contain original data; ? however they are lacking the format of the original report. ? Caution should be taken when reading/interpreti ng unformatted reports. ? Name: ? ROHAN, YOSI ? Accession #: ? [id number] ? : ? 1960 (Age: 49) ??F ? Collect Date: ? 05/18/2010 ? Location: ? [facility] ? Receive Date: ? 05/19/2010 ? Provider: MAURICE ALMANZAR MD ? Copy to: BUD BRITO MD ? Final Pathologic Diagnosis: ? A. ?Colon, hepatic flexure polyp, biopsies: ? 1. ?Fragments of tubular adenoma. ? B. ?Colon, descending polyp, biopsies: ? 1. ?Fragments of cauterized hyperplastic polyp. ? C. ?Colon, sigmoid at tattoo site, biopsies: ? 1. ?Surface hyperplastic changes with rare macrophages containing tattoo pigment. ? 2. ? No tubulovillous adenoma identified. ? D. ?Colon, sigmoid polyp, biopsy: ? 1. ?Hyperplastic polyp. ? Document reviewed and electronically signed by: ? GANESH C HUMPHREY MD ? Report ??Date: 05/22/2010 20:40 ? By the signature above, the attending physician certifies that he/she has ? personally conducted a gross and/or microscopic examination of the described ? specimens and rendered or confirmed the above diagnosis. ? Specimen(s) Received: ? A. ?Hepatic flexure polyp ? B. ? Descending colon polyp ? C. ? [facility] ? D. ? Sigmoid colon polyp ? Clinical History: ? H/O colon tubulovillous, adenoma 2008 ? Gross Description: ? [facility] fix[facility] labelled Mittie, Yosi and hepatic ? flexure polyps are three pink-mensah irregular soft tissues ranging from 0.1 x 0.1 x 0.1 cm to 0.8 x 0.2 x 0.1 cm, submitted in toto in (A). ? Received in [facility]'s fixative labelled Rohan, Yosi and descending colon polyp are two pink-mensah irregular soft tissues, 0.2 x 0.2 x 0.2 cm and 1.0 x 0.2 x 0.2 cm, submitted in toto in (B). ? [facility] labelled Mittie, Yosi and sigmoid polyp ?? site at tattoo are two pink-mensah irregular soft tissues, 0.1 x 0.1 x 0.1 cm and 0.4 x 0.1 x 0.1 cm, submitted in toto in (C). ? Received in [facility]'s fixative labelled Rohan, Yosi and sigmoid colon ?? polyp is a single 0.4 x 0.1 x 0.1 cm pink-mensah irregular soft tissue, submitted in toto in (D). ??(Janette Awad)/mpl ? End of Report ? [facility] 05/18/2010 05/19/2010 11: 20 EST us Maurice Almanzar MD PATHOLOGY ORDERABLES Final Resul t [facility] [address] [place] [address] documented in this encounter Visit Diagnoses Not on filedocumented in this encounter
--- OUTSIDE RECORDS SUMMARY | 2024-03-26 00:35 | XMS_ITS | Encounter Summary ---
Author Organization [facility] Address [address] [place] [address] Care Team Providers Care Ct Manager Name Role Phone Unavailable Primary Care Provider Unavailabl e Encounter Details Date Type Department Care Team (Late st Contact Info) Description 12/21/2004 Results Only [facility] - Maple conversion [address] [place] [address] Saira Kerr, [facility] [address] [place] [address] [address] [address] Social History Tobacco Use Types Packs/Day Years [...] Priority Date/Time Associated Diagnosis Comments CYTOPATHOLOGY Routine 12/21/2004 0:00 EDT documented in this encounter Results * CYTOPATHOLOGY (12/21/2004 0:00 EDT) Pathology Report: CYTOPATHOLOGY REPORT Reports generated via electronic interface contain original data; however they are lacking the format of the original report. Caution should be taken when reading/interpreti ng unformatted reports. Name: ? YOSI MADRIGAL ? Accession #: ? [id number] : ? 1960 (Age: 44) ??F ?Collect Date: ? 12/21/2004 Location: ? [facility] ? Receive Date: ? 12/24/2004 Provider: ?SAIRA KERR IMPROVEMENT ADVISOR Copy to: ? Specimen/Source: ?ThinPrep Pap Test, Cervix/Endocervix, processed on [employer] ThinPrep Imaging System, with manual evaluation Last Menstrual Period: ? 11/26/04 Other: ? HPVA - HPV testing requested if ASC-US on the current ThinPrep Pap test. ? SPECIMEN ADEQUACY ? Satisfactory for Evaluation - transformation zone component present GENERAL CATEGORIZATION ? Negative for Intraepithelial Lesion or Malignancy ? Document reviewed and electronically signed by: ? CATIA Segovia(ASCP) ? Report Date: ??01/02/2005 09:06 End of Report [facility] 12/21/2004 12/24/2004 us Saira Kerr IMPROVEMENT ADVISOR PATHOLOGY ORDERABLES Final R esult [facility] [address] [place] [address] documented in this encounter Visit Diagnoses Not on filedocumented in this encounter
--- OUTSIDE RECORDS SUMMARY | 2024-03-26 00:35 | XMS_ITS | Encounter Summary ---
Author Organization [facility] Address [address] [place] [address] Care Team Providers Care Linemarker Name Role Phone Unavailable Primary Care Provider Unavailabl e Encounter Details Date Type Department Care Team (Late st Contact Info) Description 01/19/2007 Results Only [facility] - Maple conversion [address] [place] [address] Carol Montoya, CARMEN Social History Tobacco Use [...] Priority Date/Time Associated Diagnosis Comments CYTOPATHOLOGY Routine 01/19/2007 0:00 EDT documented in this encounter Results * CYTOPATHOLOGY (01/19/2007 0:00 EDT) Pathology Report: CYTOPATHOLOGY REPORT Reports generated via electronic interface contain original data; however they are lacking the format of the original report. Caution should be taken when reading/interpreti ng unformatted reports. Name: ? YOSI MADRIGAL ? Accession #: ? [id number] : ? 1960 (Age: 46) ??F ?Collect Date: ? 01/19/2007 Location: ? [facility] ? Receive Date: ? 01/19/2007 Provider: ?CAROL MONTOYA PROCEDURES TECH Copy to: ? Specimen/Source: ?ThinPrep Pap Test, Cervix/Endocervix, processed on [employer] ThinPrep Imaging System, with manual evaluation Last Menstrual Period: ? 01/08/07 Other: ? HPVA - HPV testing requested if ASC-US on the current ThinPrep Pap test. ? SPECIMEN ADEQUACY ? Satisfactory for Evaluation - transformation zone component present GENERAL CATEGORIZATION ? Negative for Intraepithelial Lesion or Malignancy ? Document reviewed and electronically signed by: ? CATIA Segovia(ASCP) ? Report Date: ??01/23/2007 17:43 End of Report [facility] 01/19/2007 01/19/2007 us Carol Montoya NP PATHOLOGY ORDERABLES Final Re sult [facility] [address] [place] [address] documented in this encounter Visit Diagnoses Not on filedocumented in this encounter
--- OUTSIDE RECORDS SUMMARY | 2024-03-26 00:35 | XMS_ITS | Encounter Summary ---
Author Organization [facility] Address [address] [place] [address] Care Team Providers Care Director Business Management Name Role Phone Unavailable Primary Care Provider Unavailabl e Encounter Details Date Type Department Care Team (Late st Contact Info) Description 02/27/2009 Orders Only [facility] Laboratory Services - [facility] ([facility] [address] [place] [address] [phone] Carol Montoya, CARMEN Social History Tobacco Use [...] Procedure Name Priority Date/Time Associated Diagnosis Comments HPV DETECTION, HIGH RISK TYPES Routine 02/27/2009 9:50 EST CYTOPATHOLOGY Routine 02/27/2009 0:00 EST documented in this encounter Results * HUMAN PAPILLOMA VIRUS DNA TEST (02/27/2009 9:50 EST) Specimen Description Cervix, ThinPrep vial [facility] Result Negative for HPV types 16, 18, 31, 33, 35, 39, 45, 51, 52, 56, 58, 59, and 68. [facility] Report Status Final 03/09/2009 [facility] 02/27/2009 9:50 EST 03/07/2009 9:50 EST us Carol M [place] ASSISTANT OPERATIONS MANAGER MICROBIOLOGY - GENERAL ORDERA BLES Final Result [facility] [address] [place] [address] * CYTOPATHOLOGY (02/27/2009 0:00 EST) Pathology Report: CYTOPATHOLOGY REPORT ? Reports generated via electronic interface contain original data; ? however they are lacking the format of the original report. ? Caution should be taken when reading/interpreti ng unformatted reports. ? Name: ? YOSI MADRIGAL ? Accession #: ? [id number] ? : ? 1960 (Age: 48) ??F ?Collect Date: ? 02/27/2009 ? Location: ? [facility] ? Receive Date: ? 02/28/2009 ? Provider: ?CAROL M BRITTNY ASSISTANT OPERATIONS MANAGER ? Copy to: ? Specimen/Source: ?Pap Test, Cervix/Endocervix, ThinPrep Imaging System ? with manual evaluation ? Last Menstrual Period: ? 10/23/09 ? Other: ? HPVDX - HPV testing requested regardless of diagnosis on current ThinPrep Pap ?? test. ? SPECIMEN ADEQUACY ? Satisfactory for Evaluation ? - transformation zone component present ? GENERAL CATEGORIZATION ? Negative for Intraepithelial Lesion or Malignancy ? Document reviewed and electronically signed by: ? Jess Zhang, CT(ASCP)(IAC) ? Report Date: ??03/06/2009 14:19 ? End of Report ? [facility] 02/27/2009 02/28/2009 us Carol Montoya ASSISTANT OPERATIONS MANAGER PATHOLOGY ORDERABLES Final Re sult [facility] [address] [place] [address] documented in this encounter Visit Diagnoses Not on filedocumented in this encounter
--- OUTSIDE RECORDS SUMMARY | 2024-03-26 00:35 | XMS_ITS | Encounter Summary ---
Author Organization [facility] Address [address] [place] [address] Care Team Providers Care Weight Training Instructor Name Role Phone Isael Dinh MD Primary Care Provider [phone] Encounter Details Date Type Department Care Team (Late st Contact Info) Description 08/29/2016 Results Only [facility]- [facility] [phone] Marlys Black MD [facility] [place], [place] [phone] Social History Tobacco Use Types Packs/Day Years [...] Diagnosis Comments PAP TEST- RESULT ONLY Routine 08/29/2016 0:00 EDT documented in this encounter Results * PAP TEST- RESULT ONLY (08/29/2016 0:00 EDT) Pathology Report: CYTOPATHOLOGY REPORT Reports generated via electronic interface contain original data; however they are lacking the format of the original report. Caution should be taken when reading/interpret ing unformatted reports. Name: ? YOSI MADRIGAL ? Accession #: ? [id number] : ? 1960 (Age: 56) ??F ?Collect Date: ? 08/29/2016 Location: ? [facility] ? Receive Date: ? 08/30/2016 Provider: ?MARLYS BLACK MD Copy to: ?ISAEL DINH MD ? Specimen/Source: ?Pap Test, Cervix, ThinPrep Imaging System with manual evaluation Last Menstrual Period: ? Hormonal/Contrace ptive Status: ? None Other: ? Additional clinical information: No HX abnormal paps ? SPECIMEN ADEQUACY ? Unsatisfactory for Evaluation, - insufficient numbers of squamous epithelial cells (less than 10% of expected cellularity) GENERAL CATEGORIZATION ? Specimen processed and examined, but unsatisfactory for evaluation of epithelial abnormality. ??Recommend repeat Pap test in 2-4 months as stated in ASCCP's 2012 Updated Consensus Guidelines. ? Document reviewed and electronically signed by: ? CATIA Taveras(ASCP) ? Report Date: ??09/09/2016 14:56 End of Report [facility] 08/29/2016 08/30/2016 us Marlys Black MD PATHOLOGY ORDERABLES Final Res ult [facility] [address] [place] [address] documented in this encounter Visit Diagnoses Not on filedocumented in this encounter Care Teams Weight Training Instructor Relationship Specialty Start Date End Date Isael Dinh MD [address] [place] [address] PCP - General 05/22/10 documented as of this encounter
--- OUTSIDE RECORDS SUMMARY | 2024-03-26 00:35 | XMS_ITS | Encounter Summary ---
Author Organization [facility] Address [address] [place] [address] Care Team Providers Care Oil Well Gun Perforator Operator Name Role Phone Isael Dinh MD Primary Care Provider [phone] Encounter Details Date Type Department Care Team (Late st Contact Info) Description 10/11/2016 Results Only [facility]- [facility] [phone] Marlys Black MD [facility] [place], [place] [address] Social History Tobacco Use Types Packs/Day Years [...] Diagnosis Comments PAP TEST- RESULT ONLY Routine 10/11/2016 0:00 EDT documented in this encounter Results * PAP TEST- RESULT ONLY (10/11/2016 0:00 EDT) Pathology Report: CYTOPATHOLOGY REPORT Reports generated via electronic interface contain original data; however they are lacking the format of the original report. Caution should be taken when reading/interpreti ng unformatted reports. Name: ? YOSI MADRIGAL ? Accession #: ? [id number] ? : ? 1960 (Age: 56) ??F ?Collect Date: ? 10/11/2016 ? Location: ? [facility] ? Receive Date: ? 10/14/2016 ? Provider: MARLYS BLACK MD Copy to: ISAEL DINH MD ? Final Report SPECIMEN ADEQUACY ? Satisfactory for Evaluation - assessment of transformation zone component not applicable ( e.g. atrophy, vaginal sample, hysterectomy) - obscuring contamination, possibly lubricant GENERAL CATEGORIZATION ? Negative for Intraepithelial Lesion or Malignancy ?? Other: Additional clinical information: insufficient cells on screening PAP Specimen/Source: ??Pap Test, Cervix, ThinPrep Imaging System with manual evaluation Document reviewed and electronically signed by: ? CATIA Del Cid(ASCP) ? Report ??Date: 10/24/2016 11:45 HPV with Pap Test ? Date Ordered: ? 10/24/2016 ? Status: ?? Signed Out ?Date Complete: ? 10/25/2016 ? By: ??System Interface ? Date Reported: ? 10/25/2016 ? Interpretation RESULT: Negative for HPV. No E6 or E7 mRNA is detected from HPV types 16,18,31,33,35, 39,45,51,52,56,58, 59,66, and 68 by chief hospital administrator mediated amplification. Comments Document reviewed and electronically signed by: ? System Interface ? Report date: 10/25/2016 By the signature above, the attending physician certifies that he/she has personally conducted a gross and/or microscopic examination of the described specimens and rendered or confirmed the above diagnosis. End of Report [facility] 10/11/2016 10/14/2016 us Marlys Black MD PATHOLOGY ORDERABLES Final Res ult [facility] [address] [place] [address] documented in this encounter Visit Diagnoses Not on filedocumented in this encounter Care Teams Oil Well Gun Perforator Operator Relationship Specialty Start Date End Date Isael Dinh MD [address] [place] [id number] PCP - General 05/22/10 documented as of this encounter
--- OUTSIDE RECORDS SUMMARY | 2024-03-26 00:35 | XMS_ITS | Encounter Summary ---
Author Organization [facility] Address [address] [place] [address] Care Team Providers Care Cafeteria Cashier Name Role Phone Isael Dinh MD Primary Care Provider Encounter Details Date Type Department Care Team (Late st Contact Info) Description 07/22/2011 Results Only [facility] Laboratory Services - [facility] ([address] [phone] Carol Montoya, CARMEN Social History Tobacco Use [...] Date/Time Associated Diagnosis Comments SURGICAL PATHOLOGY Routine 07/22/2011 0:00 EDT documented in this encounter Results * SURGICAL PATHOLOGY (07/22/2011 0:00 EDT) Pathology Report: SURGICAL PATHOLOGY REPORT Reports generated via electronic interface contain original data; however they are lacking the format of the original report. Caution should be taken when reading/interpreti ng unformatted reports. Name: ? YOSI MADRIGAL ? Accession #: ? [id number] ? : ? 1960 (Age: 50) ??F ? Collect Date: ? 07/22/2011 ? Location: ? [facility] ? Receive Date: ? 07/22/2011 ? Provider: CAROL MONTOYA DIRECTOR EMPLOYEE COMMUNICATIONS Copy to: ISAEL DINH MD ? Final Pathologic Diagnosis: ? Endometrium, biopsy: - Secretory endometrium with extensive breakdown. Document reviewed and electronically signed by: NAIMA RUVALCABA [facility] Report ??Date: 07/24/2011 15:39 By the signature above, the attending physician certifies that he/she has personally conducted a gross and/or microscopic examination of the described specimens and rendered or confirmed the above diagnosis. Specimen(s) Received: ? Endometrial bx Clinical History: ? Intermenstrual spotting Gross Description: ? Received in formalin labelled Alejandro, Yosi and endo bx is a 1.5 x 1.5 x 0.5 cm aggregate of pink-mensah tissue fragments admixed with red-brown blood clot. ??The specimen is filtered and entirely submitted in a single cassette. (Janette Awad)/nathan End of Report [facility] 07/22/2011 07/22/2011 15: 21 EDT us Carol Montoya DIRECTOR EMPLOYEE COMMUNICATIONS PATHOLOGY ORDERABLES Final Re sult [facility] [address] [place] [address] documented in this encounter Visit Diagnoses Not on filedocumented in this encounter Care Teams Cafeteria Cashier Relationship Specialty Start Date End Date Isael Dinh MD [address] [place] [address] PCP - General 05/22/10 documented as of this encounter
--- OUTSIDE RECORDS SUMMARY | 2024-03-26 00:35 | XMS_ITS | Encounter Summary ---
Author Organization [facility] Address [address] [place] [address] Care Team Providers Care Instructor Psychiatric Aide Name Role Phone Unavailable Primary Care Provider Unavailabl e Encounter Details Date Type Department Care Team (Late st Contact Info) Description 03/21/2008 Before PRISM Converted Visit ([facility]) [address] [address] Maurice Almanzar MD [address] [place], [place] [phone] Social History Tobacco Use Types Packs/Day Years [...] Date/Time Associated Diagnosis Comments SURGICAL PATHOLOGY Routine 03/21/2008 0:00 EST documented in this encounter Results * SURGICAL PATHOLOGY (03/21/2008 0:00 EST) Pathology Report: SURGICAL PATHOLOGY REPORT ? Reports generated via electronic interface contain original data; ? however they are lacking the format of the original report. ? Caution should be taken when reading/interpreti ng unformatted reports. ? Name: ? ROHAN, YOSI ? Accession #: ? [id number] ? : ? 1960 (Age: 47) ??F ? Collect Date: ? 03/21/2008 ? Location: ? [facility] ? Receive Date: ? 03/21/2008 ? Provider: MAURICE ALMANZAR MD ? Copy to: BUD BRITO MD ? Final Pathologic Diagnosis: ? A. ?Colon, rectosigmoid at 25.0 cm, polypectomy: ? 1. ?Tubulovillous adenoma. ? - Stalk margin negative for dysplasia in the sections examined. ? B. ?? Colon, sigmoid at 25.0 cm, polypectomy: ? 1. ?? Hyperplastic polyp. ? Document reviewed and electronically signed by: ? Jhony Menchaca MD ? Report ??Date: 03/23/2008 17:46 ? By the signature above, the attending physician certifies that he/she has ? personally conducted a gross and/or microscopic examination of the described ? specimens and rendered or confirmed the above diagnosis. ? Specimen(s) Received: ? A. ?Polyp rectosigmoid 25 cm (#1) ? B. ? Sigmoid polyp 25 cm (#2) ? Clinical History: ? Rectal bleeding ? Gross Description: ? Received in [facility]'s solution labelled Rohan and polyp rectosigmoid 25 cm is a 1.2 x 0.7 x 0.7 cm pedunculated polyp with an attached stalk ? measuring 0.5 x 0.4 x 0.4 cm. ??The resection margin is inked black. ??The ? specimen is bisected and submitted entirely as (A). ? Received in [facility]'s solution labelled Pomona and sigmoid polyp 25 cm is a mensah-pink irregular soft tissue measuring 0.3 x 0.3 x 0.2 cm. ??The specimen is entirely submitted as (B). ??(Ferdinand Parmar/alyssa ? End of Report ? [facility] 03/21/2008 03/21/2008 13: 58 EST us Maurice Almanzar MD PATHOLOGY ORDERABLES Final Resul t [facility] [address] [place] [address] documented in this encounter Visit Diagnoses Not on filedocumented in this encounter
--- OUTSIDE RECORDS SUMMARY | 2024-03-26 00:35 | XMS_ITS | Encounter Summary ---
Author Organization [facility] Address [address] [place] [address] Care Team Providers Care Maintenance Clerk Name Role Phone Isael Dinh MD Primary Care Provider [phone] Encounter Details Date Type Department Care Team (Late st Contact Info) Description 06/20/2020 Lab Requisition [facility] Pathology & Laboratory Medicine - [facility] [address] [place] [address] Adela Rogers, ROUGE MIXER [address] [place] [id number] Encounter for other general examination Social History [...] Date/Time Associated Diagnosis Comments PAP TEST Today 06/19/2020 9:10 EST Encounter for other general examination HPV DNA DETECTION WITH GENOTYPING, PCR Today 06/19/2020 9:10 EST Encounter for other general examination documented in this encounter Results * HUMAN PAPILLOMAVIRUS (HPV) DETECTION-HIGH RISK TYPES (06/19/2020 9:10 EST) HPV other High Risk types, PCR Negative Negative 06/29/2020 10:36 EST [facility] Comment:No E6 or E7 mRNA is detected from HPV types 16,18,31,33,35,39,45,51,52,56,58,59,66, and 68 by nut culler mediated amplification. Papanicolaou smear specimen (specimen) CERVIX UTERI STRUCTURE / Unknown 06/19/2020 9:10 EST 06/26/2020 11:12 EST us Adela Rogers ROUGE MIXER MICROBIOLOGY - GENERAL OR DERABLES Final Result [facility] [address] [place] [address] * PAP TEST (06/19/2020 9:10 EST) Specimens A. Cervix and/or Endocervix , ThinPrep Imaging System with Manual Evaluation 06/29/2020 10:36 [facility] Specimen Adequacy Satisfactory for Evaluation - assessment of transformation zone component not applicable ( e.g. atrophy, vaginal sample, hysterectomy) Scant squamous epithelial component, contamination present, possibly lubricant 06/29/2020 10:36 [facility] General Categorization Negative for intraepithelial lesion or malignancy 06/29/2020 10:36 [facility] Attestation . 06/29/2020 10:36 [facility] at 1036 Clinical History See below 06/30/19 21 10:36 [facility] HPV The result for the Human Papillomavirus (HPV) Detection-High Risk Types is Negative. No E6 or E7 mRNA is detected from HPV types 16,18,31,33,35,39 ,45,51,52,56,58,5 9,66, and 68 by nut culler mediated amplification.Taniya ting was performed on specimen [id number] and was resulted on 06/29/2020 1022 EST by NICOLAS, LAB INSTRUMENT RESULTS IN 06/29/2020 10:36 [facility] Performing Lab [facility] 06/29/2020 10:36 [facility] Scanned Images 06/29/2020 10:36 [facility] Papanicolaou smear specimen (specimen) CERVIX UTERI STRUCTURE / Unknown 06/19/2020 9:10 EST 06/20/2020 11:58 EST us Adela Rogers ROUGE MIXER PATHOLOGY ORDERABLES Cristine l Result [facility] [address] [place] [address] documented in this encounter Visit Diagnoses Diagnosis Encounter for other general examination documented in this encounter Care Teams Maintenance Clerk Relationship Specialty Start Date End Date Isael Dinh MD [address] [place] [address] PCP - General 05/22/10 documented as of this encounter
--- OUTSIDE RECORDS SUMMARY | 2024-03-26 00:35 | XMS_ITS | Encounter Summary ---
Author Organization [facility] Address [address] [place] [address] Care Team Providers Care Commissioning Engineer Name Role Phone Isael Dinh MD Primary Care Provider [phone] Encounter Details Date Type Department Care Team (Late st Contact Info) Description 04/25/[address] [facility] Pathology & Laboratory Medicine - [facility] [address] [place] [address] Adela Rogers, MILEAGE CLERK [address] [place] [phone] Encounter for other general examination Social History [...] Date/Time Associated Diagnosis Comments PAP TEST Today 04/24/2020 8:30 EST Encounter for other general examination documented in this encounter Results * PAP TEST (04/24/2020 8:30 EST) Specimens A. Cervix and/or Endocervix , ThinPrep Imaging System with Manual Evaluation 05/03/2020 13:51 EST [facility] Specimen Adequacy Unsatisfactory for evaluation - insufficient numbers of squamous epithelial cells (less than 10% of expected cellularity) possibly due to lubricant. 05/03/2020 13:51 [facility] General Categorization Unsatisfactory 05/03/2020 13:51 [facility] Educational Comments Unsatisfactory - Specimen processed and examined, but unsatisfactory for evaluation of epithelial abnormality. Recommend Pap test in 2-4 months as stated in ASCCP's 2012 Updated Guidelines. HPV testing will not be performed due to the potential for false negative results. 05/03/2020 13:51 [facility] Attestation . 05/03/2020 13:51 [facility] at 1351 Clinical History See below 05/03/19 13:51 [facility] Performing Lab [facility] 05/03/2020 13:51 [facility] Scanned Images 05/03/2020 13:51 [facility] Papanicolaou smear specimen (specimen) CERVIX UTERI STRUCTURE / Unknown 04/24/2020 8:30 EST 04/25/2020 9:09 EST us Adela Rogers MILEAGE CLERK PATHOLOGY ORDERABLES Cristine l Result [facility] [address] [place] [address] documented in this encounter Visit Diagnoses Diagnosis Encounter for other general examination documented in this encounter Care Teams Commissioning Engineer Relationship Specialty Start Date End Date Isael Dinh MD [address] [place] [address] PCP - General 05/22/10 documented as of this encounter
--- OUTSIDE RECORDS SUMMARY | 2024-03-26 00:35 | XMS_ITS | Encounter Summary ---
Author Organization [facility] Address [address] [place] [address] Care Team Providers Care Fruit Picker Name Role Phone Unavailable Primary Care Provider Unavailabl e Encounter Details Date Type Department Care Team (Late st Contact Info) Description 12/19/2003 Results Only [facility] - [facility] [address] [place] [address] Carol Montoya, CARMEN Social History Tobacco Use [...] Priority Date/Time Associated Diagnosis Comments CYTOPATHOLOGY Routine 12/19/2003 0:00 EDT documented in this encounter Results * CYTOPATHOLOGY (12/19/2003 0:00 EDT) Pathology Report: CYTOPATHOLOGY REPORT Reports generated via electronic interface contain original data; however they are lacking the format of the original report. Caution should be taken when reading/interpreti ng unformatted reports. Name: ? YOSI MADRIGAL ? Accession #: ? [id number] : ? 1960 (Age: 43) ??F ?Collect Date: ? 12/19/2003 Location: ? [facility] ? Receive Date: ? 12/20/2003 Provider: ?CAROL MONTOYA STEAM PAN SPONGER Copy to: ? Specimen/Source: ?ThinPrep Pap Test, Cervix/Endocervix Last Menstrual Period: ? 11/22/2003 ? SPECIMEN ADEQUACY ? Satisfactory for Evaluation - transformation zone component present GENERAL CATEGORIZATION ? Negative for Intraepithelial Lesion or Malignancy ? Document reviewed and electronically signed by: ? CATIA Segovia(ASCP) ? Report Date: ??12/22/2003 08:39 End of Report [facility] 12/19/2003 12/20/2003 us Carol Montoya NP PATHOLOGY ORDERABLES Final Re sult [facility] [address] [place] [address] documented in this encounter Visit Diagnoses Not on filedocumented in this encounter
--- NOTE | 2024-03-26 15:15 | DI.MAMMO_ITS ---
Exam(s) MAMMO SCREENING EXAM: MAMMO SCREENING CLINICAL HISTORY: screening TECHNIQUE: Mammograms were interpreted according to the usual protocol including computer analysis w [employer] CAD system, tomosynthesis and C-view imaging. COMPARISON: 2014 through 2022 FINDINGS: The breasts are composed of heterogeneously dense fibroglandular densities, Breast Density category C . No suspicious masses or suspicious microcalcifications are seen. No skin thickening or abnormal axillary lymph nodes are seen. There has been no significant change from prior exams. IMPRESSION: BI-RADS Category 1, Negative mammogram. Yearly screening mammography is recommended. Breast Density Category C, heterogeneously Dense. The mammogram demonstrates the patient's breast tissue is dense. Dense breast tissue is very common a nd is not abnormal but dense breast tissue can make it harder to find cancer on a mammogram. Also, de nse breast tissue may increase breast cancer risk. This information about the result of the mammogram report was provided to the patient to raise their awareness. Use this report when you speak with the patient about their risks for breast cancer, which includes their family history. At that time, you may recommend additional screening tests (Ultrasound or MRI) as they might be useful based on their r isk. A negative radiographic report should not delay biopsy if a dominant or clinically suspicious mass is present. Up to ten percent of cancers are not identified on mammography. A negative report may reinforce clinical impression. Adenosis and dense breasts may obscure an underlying neoplasm. False positive reports average 6 to 10%.
== END 2024-03-26 00:49 ==
LOC: DI 00:30
PROVIDERS: PCP Internal Medicine; Visit Provider Nurse Practitioner Women's Health
DX: Z12.31 Encounter for screening mammogram for malignant neoplasm of breast (principal); R92.333 Mammographic heterogeneous density, bilateral breasts
CPT/HCPCS: 77063; 77067

== ENCOUNTER 2025-04-27 10:04 | Outpatient (REF) | payer BC, SELFPAY ==
[2025-04-27 16:07] LABS: HCT 41.6 % (36.0-46.0); HGB 13.3 g/dL (11.2-15.7); MCH 29.7 pg (27.0-33.0); MCHC 32.0 % (32.0-36.0); MCV 93 fL (80-95); MPV 10.9 fL (8.0-11.0); Platelet Count 369 10^3/uL (130-400); RBC 4.48 10^6/uL (3.93-5.22); RDW 13.0 % (11.7-14.6); RDW-SD 44.5 fL; WBC 4.70 10^3/uL (4.4-10.8)
[2025-04-27 16:19] LABS: Anion Gap 7 mmol/L (3-11); BUN 14 mg/dL (9-23); CO2 31.0 mmol/L (20.0-31.0); Calcium 9.5 mg/dL (8.3-10.6); Chloride 108 mmol/L (98-107); Glucose 84 mg/dL (74-106); Potassium 4.9 mmol/L (3.5-5.1); Sodium 146 mmol/L (136-145)
== END 2025-04-27 10:05 | disposition home or self-care (01) ==
LOC: NCHCN 10:04
PROVIDERS: PCP Family Medicine; Visit Provider Family Medicine
DX: Z00.00 Encounter for general adult medical examination without abnormal findings (principal)
CPT/HCPCS: 80048; 85027